=== PATIENT | male | born 1960 | race Caucasian/White ===

== ENCOUNTER 2018-10-17 15:22 | Observation (INO) ==
[2018-10-17] MEDS ORDERED: SODIUM CHLORIDE 0.9% 1000ML 1,000 ML IV ONE ×2 (15:41→16:46)
[2018-10-17] MEDS ORDERED: ONDANSETRON INJ 2 MG/ML 2 ML VIAL IV STA (15:41)
[2018-10-17] MEDS ORDERED: KETOROLAC 30 MG/ML VIAL IV STA (15:41)
--- NOTE | 2018-10-17 16:03 | Emergency Department Note ---
History of Present Illness General Chief Complaint: Flank Pain Stated Complaint: NAUSEA,VOMITING, PAIN IN LEFT SIDE Time Seen by Provider: 10/17/18 15:30 Source: patient Mode of arrival: ambulatory Limitations: no limitations History of Present Illness Provider Complaint: abdominal pain and flank pain Onset (ago): 1 day(s) Pain Consistency: constant Location: LUQ and L flank Radiation: epigastric Migration to: no migration Severity: moderate Maximum Pain Intensity: 7 Current Pain Intensity: 7 Quality: + sharp Relieved By: + nothing Exacerbated By: + nothing Context: no foreign travel, no possible food poisoning, no sick contacts, no recent antibiotic use, no recent surgery/procedure, no recent injury and no history of similar episodes Associated Symptoms: + nausea and + vomiting; no diarrhea, no fever, no chills, no constipation, no dysuria, no hematuria and no anorexia Treatments prior to arrival: none This 57-year-old male patient presents emergency department today, ambulatory, complaining of severe left sided pain. Patient reports pain in his left flank radiating to the left upper quadrant. He states it occasionally radiates toward the left lower quadrant, but not into his groin like his normal kidney stones. Patient states the pain began last night, and he developed nausea with 2 episodes of vomiting earlier today. He states the nausea vomiting with the pain. The patient rates the pain 7/10 and describes it as sharp. He denies any fever or recent illness. He reports some intermittent diarrhea and constipation, but associates this with his diabetes medication changes recently. He denies any urinary symptoms including frequency, burning, urgency , painful urination, or drainage. He denies any chest pain or dyspnea. He states the pain does radiate up towards the lower left rib cage though. The pain is nonexertional in nature. He denies any recent travel. He is not on any hormone treatments. He denies a history of clots, and is not a smoker. Home Medications Home Medications Medication Instructions Recorded Confirmed Type aspirin 81 mg PO QAM 07/28/18 10/17/18 History cholecalciferol (vitamin D3) 1,000 unit PO QAM 07/28/18 10/17/18 History [Vitamin D3] empagliflozin [Jardiance] 25 mg PO QAM 07/28/18 10/17/18 History glipizide [Glucotrol XL] 10 mg PO QAM 07/28/18 10/17/18 History levothyroxine 175 mcg PO DIRECTED 07/28/18 10/17/18 History omeprazole 20 mg PO QAM 07/28/18 10/17/18 History oxycodone 5 mg PO Q4H PRN #15 tab 07/28/18 10/17/18 Rx rosuvastatin [Crestor] 10 mg PO QPM 07/28/18 10/17/18 History sitagliptin-metformin [Janumet] 1 tab PO BID 07/28/18 10/17/18 History celecoxib 200 mg PO DAILY 10/17/18 10/17/18 History losartan 25 mg PO QPM 10/17/18 10/17/18 History trazodone 100 mg PO QPM PRN 10/17/18 10/17/18 History Allergies Allergy/AdvReac Type Severity Reaction Status Date / Time acetaminophen [From Tylenol] Allergy Intermediate Nausea/Vomi Verified 10/17/18 16:13 ting naproxen Allergy Intermediate GI UPSET Verified 10/17/18 16:13 morphine Allergy Mild ITCHING Verified 10/17/18 16:13 NONSTEROIDAL Allergy Mild GI UPSET Uncoded 10/17/18 16:13 Past Med/Surg History Medical History Diabetes Kidney stones Surgical History History of lithotripsy Social History marital status: Current Living Situation: Spouse and Family current occupational status: employed Feels Safe at Home: Yes Smoking Status: Never smoker Hx Alcohol Use: Yes Preferred Language: Czech Review of Systems A total of 10 systems reviewed and were otherwise negative Physical Exam 2 Vital Signs: Vital Signs - 24 hr 10/17/18 15:25 10/17/18 16:46 10/17/18 18:31 Temperature 36.6 C Temperature Source Oral Sepsis Recent Feve r Within 48 Hours No Sepsis New/Unexpla ined Change in Men jena Status No Sepsis Action Take n by Nursing No Action Required Pulse Rate 112 H Pulse Rate [Right Finger] 106 H 101 H Pulse Rhythm Regular Pulse Rhythm [Righ t Finger] Regular Regular Pulse Strength Normal Pulse Strength [Ri ght Finger] Normal Normal Respiratory Rate 22 18 18 Respiratory Effort / Characteristics Non-Labored Sponta neous Non-Labored Non-Labored Respiratory Depth Normal Normal Normal Respiratory Patter n Regular Regular Regular Blood Pressure 140/67 Blood Pressure [Le ft Arm] 144/63 H 123/73 Blood Pressure Luz n 91 Blood Pressure Luz n [Left Arm] 90 89 Blood Pressure Pos ition Sitting Blood Pressure Pos ition [Left Arm] Lying Lying Pulse Oximetry 95 95 95 Oxygen Delivery Me thod Room Air Room Air Physical Exam: VITALS: Vitals are noted on the nurse's note and reviewed by myself. Vital signs stable. GENERAL: This is a 57-year-old white male, in no acute distress, nondiaphoretic , well-developed well-nourished. SKIN: The skin was without rashes, erythema, edema, or bruising. There is no tenting of the skin. Capillary reflex less than 2 seconds. HEAD: Normocephalic atraumatic. EARS: External auditory canals clear, tympanic membranes pearly hightower without erythema or effusion bilaterally. EYES: Pupils equal round and reactive to light and accommodation. Conjunctivae without injection, sclerae without icterus. Extraocular movements intact. NOSE: Patent, turbinates without inflammation or discharge. No sinus tenderness. MOUTH: Mucous membranes moist. Tonsils are not enlarged. Pharynx without erythema or exudate. Uvula midline. Airway patent. Tongue does not deviate. NECK: Supple without nuchal rigidity. No lymphadenopathy. Cervical spine is nontender. No JVD. HEART: Regular rate and rhythm without murmurs gallops or rubs. LUNGS: Clear to auscultation bilaterally without wheezes, rales or rhonchi. No dullness to percussion. No retractions or accessory muscle use. ABDOMEN: Positive bowel sounds x 4. Normal tympanic percussion. Tenderness in the left upper quadrant. The abdomen is otherwise soft, nontender, without masses or organomegaly. Toribio sign negative. No guarding or rebound tenderness. Positive left-sided CVA tenderness. MUSCULOSKELETAL: No muscle atrophy, erythema, or edema noted. Full range of motion without joint tenderness in all extremities. No tenderness to palpation. Normal gait. Strength 5/5 throughout. NEURO: Patient was alert and oriented to person place and time. Normal sensation to light and sharp touch. Deep tendon reflexes 2+ throughout. No focal neurological deficits. Course The patient was seen and evaluated as above. IV access obtained, labs drawn. The patient was medicated with IV normal saline solution, Zofran, and Toradol. He was offered narcotics, but preferred to start with nonnarcotic analgesics first. Imaging performed and reviewed by myself and radiologist as above. Labs reviewed by myself. The patient was reassessed. He continues to report significant nausea and vomiting. He was given 25 mg IV Phenergan, second liter normal saline solution , and ranitidine IV. I discussed the findings of all testing with the patient at bedside. I discussed the case with my attending. The patient was reassessed and continues to experience significant nausea and some vomiting. He continues to report severe left upper quadrant pain. I discussed the case with the showcase trimmer here in the ED. They were agreeable to admission for obs for dehydration. I spoke with ERUM Lopez. She agreed to see and evaluate the patient for admission. Please see her dictation regarding ongoing management care of this patient. Administered Medications Fentanyl Citrate (Fentanyl Citrate) 50 mcg IV Q15M PRN PRN Reason: Pain Stop: 10/31/18 16:27 Last Admin: 10/17/18 16:45 Dose: 50 mcg Discontinued Medications Sodium Chloride (Nss 1000ml) 1,000 mls @ 999 mls/hr IV .Q1H1M ONE Stop: 10/17/18 16:41 Last Infusion: 10/17/18 17:43 Dose: 0 mls/hr Infusion: 10/17/18 17:11 Dose: 0 mls/hr Admin: 10/17/18 16:11 Dose: 999 mls/hr Promethazine HCl 25 mg/ Sodium (Chloride) 51 mls @ 204 mls/hr IV NOW STA Stop: 10/17/18 16:42 Last Infusion: 10/17/18 17:00 Dose: 0 mls/hr Admin: 10/17/18 16:45 Dose: 204 mls/hr Ranitidine HCl (Zantac) 50 mg in 102 mls @ 200 mls/hr IV NOW STA Stop: 10/17/18 17:16 Last Admin: 10/17/18 17:42 Dose: 200 mls/hr Sodium Chloride (Nss 1000ml) 1,000 mls @ 999 mls/hr IV .Q1H1M ONE Stop: 10/17/18 17:46 Last Infusion: 10/17/18 17:43 Dose: 0 mls/hr Admin: 10/17/18 17:08 Dose: 999 mls/hr Ketorolac Tromethamine (Toradol) 30 mg IV NOW STA Stop: 10/17/18 15:42 Last Admin: 10/17/18 16:11 Dose: 30 mg Ondansetron HCl (Zofran) 4 mg IV NOW STA Stop: 10/17/18 15:42 Last Admin: 10/17/18 16:11 Dose: 4 mg Medical Decision Making Differential Diagnosis + peptic ulcer disease, + biliary pathology, + UTI, + obstruction, + mesenteric ischemia, + aortic pathology, + infections, + inflammatory bowel disease, + renal colic, + torsion (male), + epididymitis (male), + abdominal pain, + appendicitis, + calculus of kidney, + constipation, + diverticulitis, + endometriosis, + gastroenteritis, + pancreatitis and + small bowel obstruction Home Medications Current Medication List: was personally reviewed by me Laboratory Data Attestation: I reviewed the patient's lab results. No leukocytosis, anemia, thrombocytopenia. The patient's coags without abnormality. Troponin negative. Renal function normal, however the patient is slightly acidotic with an anion gap of 16. The patient is slightly hyponatremic at 135 and glucose elevated at 280. Lipase normal at 164. Urinalysis positive for ketones and glucose. No evidence of infection. I suspect the glucose urea is related to the patient's medications. Result diagrams: 10/17/18 16:05 10/17/18 16:05 Lab Results 10/17/18 10/17/18 10/17/18 Range/Units 16:05 16:05 16:05 WBC 9.70 (4.8-10.8) K/uL RBC 5.69 (4.7-6.1) M/uL Hgb 17.6 (14.0-18.0) g/dL Hct 49.5 (42-52) % MCV 87.0 (80-100) fL MCH 30.9 (25-34) pg MCHC 35.6 (32-36) g/dL RDW Std Deviation 43.9 (36.4-46.3) fL RDW Coeff of Rosio 13.9 (11.5-14.5) % Plt Count 173 (130-400) K/uL MPV 10.6 H (7.4-10.4) fL Immature Gran % (Auto) 0.4 % Neut % (Auto) 92.1 % Lymph % (Auto) 4.1 % Banks % (Auto) 3.3 % Eos % (Auto) 0.0 % Baso % (Auto) 0.1 % Immature Gran # (Auto) 0.04 H (0.00-0.02) K/uL Neut # (Auto) 8.93 H (1.4-6.5) K/uL Lymph # (Auto) 0.40 L (1.2-3.4) K/uL Banks # (Auto) 0.32 (0.11-0.59) K/uL Eos # (Auto) 0.00 (0-0.5) K/uL Baso # (Auto) 0.01 (0-0.2) K/uL PT 10.4 (9.0-12.0) Seconds INR 1.0 (0.9-1.1) APTT 26.0 (21.0-31.0) Seconds PTT Ratio 1.0 D-Dimer 360 (0-500) ug/L FEU Sodium 135 L (136-145) mmol/L Potassium 4.0 (3.5-5.1) mmol/L Chloride 99 (98-107) mmol/L Carbon Dioxide 20 L (21-32) mmol/L Anion Gap 16.0 H (3-11) BUN 20 H (7-18) mg/dl Creatinine 1.03 (0.6-1.4) mg/dl Est Cr Clr Drug Dosing 89.8 ml/min Est GFR ( Amer) 93.0 Est GFR (Non-Af Amer) 80.3 BUN/Creatinine Ratio 19.5 (10-20) Glucose 280 H (70-99) mg/dl Calcium 8.9 (8.5-10.1) mg/dl Total Bilirubin 1.1 H (0.2-1) mg/dl AST 19 (15-37) U/L ALT 32 (12-78) U/L Alkaline Phosphatase 95 (45-117) U/L CK-MB (CK-2) 1.3 (0.5-3.6) ng/ml Troponin I < 0.015 (0-0.045) ng/ml Total Protein 7.9 (6.4-8.2) gm/dl Albumin 4.4 (3.4-5.0) gm/dl Globulin 3.5 (2.5-4.0) gm/dl Albumin/Globulin Ratio 1.2 (0.9-2) Lipase 164 (73-393) U/L Urine Color Urine Appearance (Clear) Urine pH (4.5-7.5) Ur Specific Steen (1.000-1.030) Urine Protein (Negative) Urine Glucose (UA) (Negative) Urine Ketones (Negative) Urine Blood (Negative) Urine Nitrite (Negative) Urine Bilirubin (Negative) Urine Urobilinogen (Negative) Ur Leukocyte Esterase (Negative) 10/17/18 Range/Units 16:57 WBC (4.8-10.8) K/uL RBC (4.7-6.1) M/uL Hgb (14.0-18.0) g/dL Hct (42-52) % MCV (80-100) fL MCH (25-34) pg MCHC (32-36) g/dL RDW Std Deviation (36.4-46.3) fL RDW Coeff of Rosio (11.5-14.5) % Plt Count (130-400) K/uL MPV (7.4-10.4) fL Immature Gran % (Auto) % Neut % (Auto) % Lymph % (Auto) % Banks % (Auto) % Eos % (Auto) % Baso % (Auto) % Immature Gran # (Auto) (0.00-0.02) K/uL Neut # (Auto) (1.4-6.5) K/uL Lymph # (Auto) (1.2-3.4) K/uL Banks # (Auto) (0.11-0.59) K/uL Eos # (Auto) (0-0.5) K/uL Baso # (Auto) (0-0.2) K/uL PT (9.0-12.0) Seconds INR (0.9-1.1) APTT (21.0-31.0) Seconds PTT Ratio D-Dimer (0-500) ug/L FEU Sodium (136-145) mmol/L Potassium (3.5-5.1) mmol/L Chloride (98-107) mmol/L Carbon Dioxide (21-32) mmol/L Anion Gap (3-11) BUN (7-18) mg/dl Creatinine (0.6-1.4) mg/dl Est Cr Clr Drug Dosing ml/min Est GFR ( Amer) Est GFR (Non-Af Amer) BUN/Creatinine Ratio (10-20) Glucose (70-99) mg/dl Calcium (8.5-10.1) mg/dl Total Bilirubin (0.2-1) mg/dl AST (15-37) U/L ALT (12-78) U/L Alkaline Phosphatase (45-117) U/L CK-MB (CK-2) (0.5-3.6) ng/ml Troponin I (0-0.045) ng/ml Total Protein (6.4-8.2) gm/dl Albumin (3.4-5.0) gm/dl Globulin (2.5-4.0) gm/dl Albumin/Globulin Ratio (0.9-2) Lipase (73-393) U/L Urine Color Yellow Urine Appearance Clear (Clear) Urine pH 5.0 (4.5-7.5) Ur Specific Steen 1.040 H (1.000-1.030) Urine Protein Negative (Negative) Urine Glucose (UA) 3+ H (Negative) Urine Ketones 3+ H (Negative) Urine Blood Negative (Negative) Urine Nitrite Negative (Negative) Urine Bilirubin Negative (Negative) Urine Urobilinogen Negative (Negative) Ur Leukocyte Esterase Negative (Negative) Imaging Data Radiologist's Impression: XR chest 1V portable CLINICAL HISTORY: left side pain chest pain. Dyspnea. COMPARISON STUDY: No previous studies for comparison. FINDINGS: The bones soft tissues and hemidiaphragms are normal. The cardiomediastinal silhouette is normal. The lungs are clear. The pulmonary vasculature is normal. IMPRESSION: Negative chest. The above report was generated using voice recognition software. It may contain grammatical, syntax or spelling errors. Electronically signed by: Martin Polk M.D. 10/17/2018 4:[address] SCAN OF THE ABDOMEN AND PELVIS WITHOUT IV CONTRAST CLINICAL HISTORY: Left lower quadrant abdominal pain. COMPARISON STUDY: Abdominal CT dated 07/28/2018. TECHNIQUE: CT scan of the abdomen and pelvis is performed from the lung bases to the proximal femora. Images are reviewed in the axial, sagittal, and coronal planes. IV contrast was not administered for this examination as per the referring clinician. Note that the examination was performed in suboptimal fashion without oral and IV contrast. A dose lowering technique was utilized adhering to the principles of ALARA. CT DOSE: 1045.88 mGy.cm FINDINGS: Lung bases: The heart is normal in size and without pericardial effusion. The lung bases are clear. Liver: The unenhanced liver is enlarged, measuring 19.3 cm in length. The liver demonstrates diffusely diminished attenuation consistent with hepatic steatosis. There is no intrahepatic biliary ductal dilatation. Gallbladder: Unremarkable. Spleen: Normal in size and attenuation. Pancreas: The unenhanced pancreas is moderately atrophic and grossly unremarkable. Adrenal glands: Unremarkable. Kidneys: The unenhanced kidneys are normal in size and without hydronephrosis. There are at least 2 clusters of nonobstructing calculi in the lower pole of the left kidney. The largest cluster measures up to 12 mm. No right renal calculi are identified. There is no evidence of contour deforming renal mass lesion. Abdominal vasculature: The abdominal aorta is normal in course and caliber noting moderate atherosclerotic calcification. Bowel: The stomach is distended and fluid-filled. The proximal small bowel loops are mildly distended and fluid-filled, measuring up to 3.4 cm diameter. No transition point is identified, and no bowel obstruction is seen. The appendix is well-visualized and normal. Peritoneum: There is no intraperitoneal free air or abdominal ascites. There is a moderate fat-containing umbilical hernia. Lymphadenopathy: None. Pelvic viscera: The bladder is distended and grossly unremarkable. The prostate and seminal vesicles are normal as imaged. There is a small fat-containing right inguinal hernia. Skeletal structures: There is moderate lumbosacral spondylosis. Postlaminectomy change is noted in the lower lumbar region. No lytic or blastic lesions are seen. IMPRESSION: 1. Suboptimal examination without oral and IV contrast. 2. The stomach is distended, and there are mildly distended and fluid-filled loops of small bowel. No transition point is identified and no bowel obstruction is seen. There is no bowel wall thickening or associated inflammation. The appearance suggests a nonspecific enteritis and clinical correlation will be required. 3. Left-sided nephrolithiasis. 4. Hepatomegaly and hepatic steatosis. 5. Additional findings as above. Electronically signed by: Andrzej Aranda M.D. 10/17/2018 4:31 PM ECG Data Attestation: I personally reviewed and interpreted this ECG as follows: Indication: abdominal pain Rate (beats per minute): 109 Rhythm: sinus tachycardia Findings: no acute ischemic change and no ectopy Comparison ECG Date: from (05/31/2007) Change: no significant change Blood Pressure Blood Pressure Findings: Normal blood pressure MDM Narrative This 57-year-old male patient presents emergency department today complaining of left upper quadrant and left flank tenderness, intractable nausea and vomiting, and decreased appetite. Initial concern was for kidney stone, however the patient states this does feel different than stones he has experienced in the past. Workup here is consistent with an acute enteritis, however I am concerned for possibly developing small bowel obstruction given the distended and fluid-filled stomach and bowel. The patient's nausea and vomiting was not controlled despite 2 rounds of antiemetics. Due to the slight acidosis, he was hydrated with 2 L normal saline solution. I do not feel that he will be able to tolerate p.o. fluids outpatient enough to stay adequately hydrated, especially given his history of diabetes. The patient was agreeable to inpatient management. He will be admitted to the hospitalist team for an observation stay for IV hydration and symptom management. The patient was agreeable with the course of care and treatment plan. The chart was completed utilizing [employer] Speech voice recognition software. Grammatical errors, random word insertions, pronoun errors, and incomplete sentences are an occasional consequence of this system due to software limitations, ambient noise, and hardware issues. Any formal questions or concerns about the content, text, or information contained within the body of this dictation should be directly addressed to the provider for clarification. Impression & Plan Acute dehydration, Abdominal pain, Enteritis, Intractable vomiting with nausea Discharge Plan Visit Data Chief Complaint: Flank Pain Stated Complaint: NAUSEA,VOMITING, PAIN IN LEFT SIDE ED Provider: Cj Escobar ED Midlevel Provider: Rosmery Soni Discharge Problem: Acute dehydration, Abdominal pain, Enteritis, Intractable vomiting with nausea Patient Disposition: Still a Patient Condition: Good Forms Stand Alone Forms: My [facility] Prescriptions Prescriptions: No Action celecoxib 200 mg capsule 200 mg PO DAILY PRN (Reason: Pain) RF: 0 trazodone 100 mg tablet 100 mg PO QPM PRN (Reason: Sleep) RF: 0 losartan 25 mg tablet 25 mg PO MOWEFR RF: 0 levothyroxine 175 mcg tablet 175 mcg PO DIRECTED RF: 0 glipizide [Glucotrol XL] 10 mg tablet extended release 24hr 10 mg PO QAM RF: 0 aspirin 81 mg Tablet,Delayed Release (Dr/Ec) 81 mg PO QAM RF: 0 omeprazole 20 mg capsule,delayed release(DR/EC) 20 mg PO QAM RF: 0 cholecalciferol (vitamin D3) [Vitamin D3] 1,000 unit Capsule 1,000 unit PO QAM RF: 0 rosuvastatin [Crestor] 10 mg tablet 10 mg PO MOWEFR RF: 0 sitagliptin-metformin [Janumet] 50-1,000 mg tablet 1 tab PO BID RF: 0 empagliflozin [Jardiance] 25 mg tablet 25 mg PO QAM RF: 0 oxycodone 5 mg tablet 5 mg PO Q4H PRN (Reason: pain) Qty: 15 RF: 0 Referrals Referrals: Natanael Rodriguez [Primary Care Provider] -
[2018-10-17 16:18] LABS: Basophils # (auto) 0.01 K/uL (0-0.2); Basophils % (auto) 0.1 %; Hematocrit (blood only) 49.5 % (42-52); Hemoglobin 17.6 g/dL (14.0-18.0); Immature Granulocytes # (auto) 0.04 K/uL (0.00-0.02); Immature Granulocytes % (auto) 0.4 %; Lymphocytes % (auto) 4.1 %; Mean Corpuscular Hgb Conc 35.6 g/dL (32-36); Mean Platelet Volume 10.6 fL (7.4-10.4); Monocytes # (auto) 0.32 K/uL (0.11-0.59); Monocytes % (auto) 3.3 %; Neutrophils # (auto) 8.93 K/uL (1.4-6.5); Neutrophils % (auto) 92.1 %; Platelet Count 173 K/uL (130-400); RDW Coefficient of Variation 13.9 % (11.5-14.5); RDW Standard Deviation 43.9 fL (36.4-46.3); Red Blood Count 5.69 M/uL (4.7-6.1)
[2018-10-17] MEDS ORDERED: PROMETHAZINE HCL 25 MG in SODIUM CHLORIDE 0.9% 50 ML IV STA (16:28)
[2018-10-17] MEDS ORDERED: fentaNYL citrate 100 MCG/2 ML VIAL IV PRN (16:28)
--- NOTE | 2018-10-17 16:33 | CT Scan Report ---
CT SCAN OF THE ABDOMEN AND PELVIS WITHOUT IV CONTRAST CLINICAL HISTORY: Left lower quadrant abdominal pain. COMPARISON STUDY: Abdominal CT dated 07/28/2018. TECHNIQUE: CT scan of the abdomen and pelvis is performed from the lung bases to the proximal femora. Images are reviewed in the axial, sagittal, and coronal planes. IV contrast was not administered for this examination as per the referring clinician. Note that the examination was performed in suboptim al fashion without oral and IV contrast. A dose lowering technique was utilized adhering to the [facility] [place]. CT DOSE: 1045.88 mGy.cm FINDINGS: Lung bases: The heart is normal in size and without pericardial effusion. The lung bases are clear. Liver: The unenhanced liver is enlarged, measuring 19.3 cm in length. The liver demonstrates diffusel y diminished attenuation consistent with hepatic steatosis. There is no intrahepatic biliary ductal d ilatation. Gallbladder: Unremarkable. Spleen: Normal in size and attenuation. Pancreas: The unenhanced pancreas is moderately atrophic and grossly unremarkable. Adrenal glands: Unremarkable. Kidneys: The unenhanced kidneys are normal in size and without hydronephrosis. There are at least 2 c lusters of nonobstructing calculi in the lower pole of the left kidney. The largest cluster measures up to 12 mm. No right renal calculi are identified. There is no evidence of contour deforming renal m ass lesion. Abdominal vasculature: The abdominal aorta is normal in course and caliber noting moderate atheroscle rotic calcification. Bowel: The stomach is distended and fluid-filled. The proximal small bowel loops are mildly distended and fluid-filled, measuring up to 3.4 cm diameter. No transition point is identified, and no bowel o bstruction is seen. The appendix is well-visualized and normal. Peritoneum: There is no intraperitoneal free air or abdominal ascites. There is a moderate fat-contai kalyan umbilical hernia. Lymphadenopathy: None. Pelvic viscera: The bladder is distended and grossly unremarkable. The prostate and seminal vesicles are normal as imaged. There is a small fat-containing right inguinal hernia. Skeletal structures: There is moderate lumbosacral spondylosis. Postlaminectomy change is noted in t he lower lumbar region. No lytic or blastic lesions are seen. IMPRESSION: 1. Suboptimal examination without oral and IV contrast. 2. The stomach is distended, and there are mildly distended and fluid-filled loops of small bowel. No transition point is identified and no bowel obstruction is seen. There is no bowel wall thickening o r associated inflammation. The appearance suggests a nonspecific enteritis and clinical correlation w ill be required. 3. Left-sided nephrolithiasis. 4. Hepatomegaly and hepatic steatosis. 5. Additional findings as above. Electronically signed by: Andrzej Aranda M.D. 10/17/2018 4:31 PM
[2018-10-17 16:34] LABS: Alanine Aminotransferase 32 U/L (12-78); Albumin Level 4.4 gm/dl (3.4-5.0); Aspartate Aminotransferase 19 U/L (15-37); BUN Creatinine Ratio 19.5 (10-20); Blood Urea Nitrogen 20 mg/dl (7-18); Calcium 8.9 mg/dl (8.5-10.1); Carbon Dioxide 20 mmol/L (21-32); Chloride 99 mmol/L (98-107); Creatinine Clr Calc Pharmacy 89.8 ml/min; Est GFR (Non-African American) 80.3; Glucose 280 mg/dl (70-99); Sodium 135 mmol/L (136-145)
[2018-10-17 16:37] LABS: Prothrombin Time 10.4 Seconds (9.0-12.0)
[2018-10-17 16:39] LABS: Albumin Globulin Ratio 1.2 (0.9-2); Alkaline Phosphatase 95 U/L (45-117); Bilirubin,Total 1.1 mg/dl (0.2-1); Creatine Kinase MB 1.3 ng/ml (0.5-3.6); Globulin 3.5 gm/dl (2.5-4.0); Total Protein 7.9 gm/dl (6.4-8.2); Troponin I < 0.015 ng/ml (0-0.045)
[2018-10-17] MEDS ORDERED: raNITIdine 50 MG/102 ML BAG IV STA (16:46)
[2018-10-17 17:09] LABS: Appearance Urine Clear (Clear); Bilirubin Urine Negative (Negative); Color Urine Yellow; Glucose Urine UA 3+ (Negative); Leukocyte Esterase Urine Negative (Negative); Nitrite Urine Negative (Negative); Protein Urine Negative (Negative); Urobilinogen Urine Negative (Negative)
[2018-10-17 17:13] LABS: Ketones Urine 3+ (Negative)
[2018-10-17] MEDS ORDERED: GLUCOSE 10 TABS/TUBE PO PRN (19:35)
[2018-10-17] MEDS ORDERED: GLUCAGON FOR INJ 1 MG VIAL SQ PRN (19:35)
[2018-10-17] MEDS ORDERED: GLUCOSE 40% GEL 15 GM TUBE PO PRN (19:35)
[2018-10-17] MEDS ORDERED: DEXTROSE 50% 50 ML SYRINGE IV PRN (19:35)
[2018-10-17] MEDS ORDERED: CARBOHYDRATES FOR HYPOGLYCEMIA PO PRN (19:35)
[2018-10-17] MEDS ORDERED: ONDANSETRON INJ 2 MG/ML 2 ML VIAL IV PRN (19:35)
[2018-10-17] MEDS: SODIUM CHLORIDE 0.9% 1000ML 1,000 ML IV SCH (19:56)
--- NOTE | 2018-10-17 20:04 | History & Physical Report ---
Date of Service October 17, 2018 Assessment & Plan (1) Intractable nausea and vomiting: -Admit to [facility] -Patient presenting with intractable nausea, vomiting, abdominal pain -In the ED, CT ABD/pelvis showing the stomach is distended, and there are mildly distended and fluid-filled loops of small bowel. No transition point is identified and no bowel obstruction is seen. -Suspect viral gastroenteritis however if symptoms do not improve, consider GI consult or outpatient EGD -Continue supportive care with IVF, PRN antiemetics -Clear liquid diet for now -Follow-up abdominal x-ray in a.m. (2) DM type 2 (diabetes mellitus, type 2): -Unknown recent Hgb A1c, will check with a.m. labs -On presentation, glucose 280 and mild anion gap at 16 (likely due to persistent vomiting) -IVF, hold oral agents and utilize NovoLog and Lantus per protocol while hospitalized -Recheck BMP this evening to monitor gap (3) HTN (hypertension): -BP controlled, continue losartan (4) GERD (gastroesophageal reflux disease): -IV PPI for now (5) Hypothyroidism: -Check TSH -Continue levothyroxine accordingly (6) Dyslipidemia: -Continue statin (7) DVT prophylaxis: -SCDs, ambulate History of Present Illness Chief Complaint: Nausea, vomiting, abdominal pain Primary Care Provider: Natanael Rodriguez 57-year-old male who presents the ED with nausea, vomiting, abdominal pain. Patient reports his symptoms began yesterday. He reports he initially had epigastric/right-sided abdominal pain. Then late this morning, patient developed vomiting. He reports several episodes of large-volume emesis. He denies any hematemesis or coffee-ground emesis. Patient reports a normal bowel movement this morning. No fevers or chills. He denies chest pain shortness of breath. No lightheadedness, dizziness, diaphoresis, syncopal events. He denies any urinary symptoms. In the ED, CT ABD/pelvis is showing stomach is distended, and there are mildly distended and fluid-filled loops of small bowel. Patient received IVF, IV ranitidine, IV promethazine, IV Zofran. While patient symptoms are improved, he still continues to feel nauseous. Allergies Allergy/AdvReac Type Severity Reaction Status Date / Time morphine Allergy Mild ITCHING Verified 10/17/18 16:13 acetaminophen [From Tylenol] AdvReac Intermediate Nausea/Vomi Verified 10/17/18 19:39 ting naproxen AdvReac Intermediate GI UPSET Verified 10/17/18 19:39 NONSTEROIDAL AdvReac Mild GI UPSET Uncoded 10/17/18 19:39 Home Medications Home Medications Medication Instructions Recorded Confirmed Type aspirin 81 mg PO QAM 07/28/18 10/17/18 History cholecalciferol (vitamin D3) 1,000 unit PO QAM 07/28/18 10/17/18 History [Vitamin D3] empagliflozin [Jardiance] 25 mg PO QAM 07/28/18 10/17/18 History glipizide [Glucotrol XL] 10 mg PO QAM 07/28/18 10/17/18 History levothyroxine 175 mcg PO DIRECTED 07/28/18 10/17/18 History omeprazole 20 mg PO QAM 07/28/18 10/17/18 History oxycodone 5 mg PO Q4H PRN #15 tab 07/28/18 10/17/18 Rx rosuvastatin [Crestor] 10 mg PO MOWEFR 07/28/18 10/17/18 History sitagliptin-metformin [Janumet] 1 tab PO BID 07/28/18 10/17/18 History celecoxib 200 mg PO DAILY PRN 10/17/18 10/17/18 History losartan 25 mg PO MOWEFR 10/17/18 10/17/18 History trazodone 100 mg PO QPM PRN 10/17/18 10/17/18 History Past Med/Surg History Medical History Dyslipidemia (Chronic) GERD (gastroesophageal reflux disease) (Chronic) Hypothyroidism (Chronic) HTN (hypertension) (Chronic) DM type 2 (diabetes mellitus, type 2) (Chronic) Diabetes (Inactive) Kidney stones (Inactive) Surgical History H/O lithotripsy (Chronic) H/O inguinal hernia repair (Chronic) History of lithotripsy (Inactive) Family History Mother Diabetes Social History marital status: Current Living Situation: Spouse and Family current occupational status: employed Other Information That Helps Us Care for You: No Feels Safe at Home: Yes Smoking Status: Former smoker Tobacco Type: cigarettes Do You Dip or Chew Tobacco: No Second Hand Exposure: No Tobacco Cessation Education Requested by Patient: No Hx Alcohol Use: Yes Alcohol type: beer Alcohol Intake Frequency: a few times a week Hx Substance Use: Yes substance use type: prescription drug and other Substance Use Type Other:: oxycodone Last Used Substance: Days (ago) Beliefs That Will Affect Care: None Preferred Language: Frisian Review of Systems ROS per HPI, all other systems reviewed and negative Physical Exam 2 Vital Signs (Past 24 Hours): Last Vital Signs Temp 36.6 C 10/17/18 15:25 Pulse 101 H 10/17/18 18:31 Resp 18 10/17/18 18:31 BP 123/73 10/17/18 18:31 Pulse Ox 96 10/17/18 19:14 Constitutional: WD/WN, vitals as above Eyes: PERRL, conjunctivae normal, anicteric sclerae ENMT: Ears: no external ear abnormality Nose: + dry nasal mucous membranes ; no external nose abnormality Respiratory: normal respiratory effort, lungs clear to auscultation Cardiovascular: Rate/Rhythm: regular rate and regular rhythm Vessels: normal peripheral pulses Extremities: no edema Gastrointestinal (Abdomen): Inspection/Auscultation: + abdomen distended; + abnormal bowel sounds (Hypoactive) Percussion/Palpation: + abdomen tender ( Right sided abdominal tenderness), abdomen soft and + hernia (Umbilical); no hepatosplenomegaly Musculoskeletal: no cyanosis or clubbing, extremities motor strength 5/5 Skin: no rashes, warm and dry Neurologic: PERRL, EOMI, accommodation nl, no face palsy, no dysarthria Psychiatric: A+Ox3, euthymic affect Results & Data Laboratory Results Laboratory Last Values WBC 9.70 K/uL (4.8-10.8) 10/17/18 16:05 RBC 5.69 M/uL (4.7-6.1) 10/17/18 16:05 Hgb 17.6 g/dL (14.0-18.0) 10/17/18 16:05 Hct 49.5 % (42-52) 10/17/18 16:05 MCV 87.0 fL (80-100) 10/17/18 16:05 MCH 30.9 pg (25-34) 10/17/18 16:05 MCHC 35.6 g/dL (32-36) 10/17/18 16:05 RDW Std Deviation 43.9 fL (36.4-46.3) 10/17/18 16:05 RDW Coeff of Rosio 13.9 % (11.5-14.5) 10/17/18 16:05 Plt Count 173 K/uL (130-400) 10/17/18 16:05 MPV 10.6 fL (7.4-10.4) H 10/17/18 16:05 Immature Gran % (Auto) 0.4 % 10/17/18 16:05 Neut % (Auto) 92.1 % 10/17/18 16:05 Lymph % (Auto) 4.1 % 10/17/18 16:05 [place] % (Auto) 3.3 % 10/17/18 16:05 Eos % (Auto) 0.0 % 10/17/18 16:05 Baso % (Auto) 0.1 % 10/17/18 16:05 Immature Gran # (Auto) 0.04 K/uL (0.00-0.02) H 10/17/18 16:05 Neut # (Auto) 8.93 K/uL (1.4-6.5) H 10/17/18 16:05 Lymph # (Auto) 0.40 K/uL (1.2-3.4) L 10/17/18 16:05 [place] # (Auto) 0.32 K/uL (0.11-0.59) 10/17/18 16:05 Eos # (Auto) 0.00 K/uL (0-0.5) 10/17/18 16:05 Baso # (Auto) 0.01 K/uL (0-0.2) 10/17/18 16:05 PT 10.4 Seconds (9.0-12.0) 10/17/18 16:05 INR 1.0 (0.9-1.1) 10/17/18 16:05 APTT 26.0 Seconds (21.0-31.0) 10/17/18 16:05 PTT Ratio 1.0 10/17/18 16:05 D-Dimer 360 ug/L FEU (0-500) 10/17/18 16:05 Sodium 135 mmol/L (136-145) L 10/17/18 16:05 Potassium 4.0 mmol/L (3.5-5.1) 10/17/18 16:05 Chloride 99 mmol/L (98-107) 10/17/18 16:05 Carbon Dioxide 20 mmol/L (21-32) L 10/17/18 16:05 Anion Gap 16.0 (3-11) H 10/17/18 16:05 BUN 20 mg/dl (7-18) H 10/17/18 16:05 Creatinine 1.03 mg/dl (0.6-1.4) 10/17/18 16:05 Est Cr Clr Drug Dosing 89.8 ml/min 10/17/18 16:05 Est GFR ( Amer) 93.0 10/17/18 16:05 Est GFR (Non-Af Amer) 80.3 10/17/18 16:05 BUN/Creatinine Ratio 19.5 (10-20) 10/17/18 16:05 Glucose 280 mg/dl (70-99) H 10/17/18 16:05 POC Glucose 198 (70-99) H 10/17/18 19:44 Calcium 8.9 mg/dl (8.5-10.1) 10/17/18 16:05 Total Bilirubin 1.1 mg/dl (0.2-1) H 10/17/18 16:05 AST 19 U/L (15-37) 10/17/18 16:05 ALT 32 U/L (12-78) 10/17/18 16:05 Alkaline Phosphatase 95 U/L (45-117) 10/17/18 16:05 CK-MB (CK-2) 1.3 ng/ml (0.5-3.6) 10/17/18 16:05 Troponin I < 0.015 ng/ml (0-0.045) 10/17/18 16:05 Total Protein 7.9 gm/dl (6.4-8.2) 10/17/18 16:05 Albumin 4.4 gm/dl (3.4-5.0) 10/17/18 16:05 Globulin 3.5 gm/dl (2.5-4.0) 10/17/18 16:05 Albumin/Globulin Ratio 1.2 (0.9-2) 10/17/18 16:05 Lipase 164 U/L (73-393) 10/17/18 16:05 Urine Color Yellow 10/17/18 16:57 Urine Appearance Clear (Clear) 10/17/18 16:57 Urine pH 5.0 (4.5-7.5) 10/17/18 16:57 Ur Specific [place] 1.040 (1.000-1.030) H 10/17/18 16:57 Urine Protein Negative (Negative) 10/17/18 16:57 Urine Glucose (UA) 3+ (Negative) H 10/17/18 16:57 Urine Ketones 3+ (Negative) H 10/17/18 16:57 Urine Blood Negative (Negative) 10/17/18 16:57 Urine Nitrite Negative (Negative) 10/17/18 16:57 Urine Bilirubin Negative (Negative) 10/17/18 16:57 Urine Urobilinogen Negative (Negative) 10/17/18 16:57 Ur Leukocyte Esterase Negative (Negative) 10/17/18 16:[address] ABD/PELVIS IMPRESSION: 1. Suboptimal examination without oral and IV contrast. 2. The stomach is distended, and there are mildly distended and fluid-filled loops of small bowel. No transition point is identified and no bowel obstruction is seen. There is no bowel wall thickening or associated inflammation. The appearance suggests a nonspecific enteritis and clinical correlation will be required. 3. Left-sided nephrolithiasis. 4. Hepatomegaly and hepatic steatosis. 5. Additional findings as above. CXR IMPRESSION: Negative chest. Code Status & VTE Plan VTE Prophylaxis Plan VTE Prophylaxis will be ordered: Yes Supervising Physician Co-Signing Physician Notes Pt was seen and examined. Agreed with Katie DANIELSON exam, assessment and plan. 57- year-old male who presents the ED with nausea, vomiting associated with L sided abdominal pain. Pt said that his symptoms started yesterday. He said that he had similar episode about 3 weeks ago where he had nausea/vomiting/diarrhea and abdominal pain. Denies any fever and chills. CT abd/pelvis showed stomach is distended, and there are mildly distended and fluid-filled loops of small bowel. No transition point is identified and no bowel obstruction is seen. There is no bowel wall thickening or associated inflammation. WBC and lipase normal. Elevated anion gap. Continue IVF, PPI and pain management. Will start on clear liquid diet and advanced as tolerated. MD Darby
[2018-10-17] MEDS: PANTOprazole 40 MG in SYRINGE 0 ML IV SCH (20:16)
[2018-10-17] MEDS: INSULIN GLARGINE SOLOSTAR 100 UNITS/ML 3 ML PEN SC SCH (20:17)
[2018-10-17] MEDS: MoRPHine SULFATE 4 MG/ML 1 ML CARP\\VIAL IV PRN (20:35)
[2018-10-17] MEDS: INSULIN ASPART 100 UNITS/ML 3 ML PEN SC SCH (20:39)
[2018-10-17 21:23] LABS: BUN Creatinine Ratio 20.8 (10-20); Creatinine Clr Calc Pharmacy 100.6 ml/min; Est GFR (African American) 106.6; Potassium 3.9 mmol/L (3.5-5.1)
[2018-10-18] MEDS: SODIUM CHLORIDE 0.9% 1000ML 1,000 ML IV SCH ×3 (03:34→20:29)
[2018-10-18] MEDS ORDERED: PNEUMOCOCCAL POLYSACCHARIDES 25 MCG/0.5 ML VIAL/SYR IM ONE (05:15)
[2018-10-18] MEDS ORDERED: PNEUMOCOCCAL ADMINISTRATION CHARGE ONE (05:15)
[2018-10-18] MEDS ORDERED: INFLUENZA VIRUS QUAD VACCINE 0.5 ML SYR IM ONE (05:15)
[2018-10-18] MEDS ORDERED: INFLUENZA ADMINISTRATION CHARGE ONE (05:15)
[2018-10-18] MEDS: LEVOTHYROXINE SODIUM 175 MCG TABLET PO SCH (06:02)
[2018-10-18 06:18] LABS: Hematocrit (blood only) 42.6 % (42-52); Hemoglobin 14.7 g/dL (14.0-18.0); Mean Corpuscular Hgb Conc 34.5 g/dL (32-36); Mean Corpuscular Volume 88.4 fL (80-100); Mean Platelet Volume 10.1 fL (7.4-10.4); Platelet Count 160 K/uL (130-400); RDW Coefficient of Variation 14.1 % (11.5-14.5); RDW Standard Deviation 45.5 fL (36.4-46.3); Red Blood Count 4.82 M/uL (4.7-6.1); White Blood Count 4.58 K/uL (4.8-10.8)
[2018-10-18 06:21] LABS: Estimated Average Glucose 246 mg/dl
[2018-10-18 06:30] LABS: BUN Creatinine Ratio 18.4 (10-20); Calcium 7.6 mg/dl (8.5-10.1); Creatinine Clr Calc Pharmacy 114.2 ml/min; Est GFR (African American) 114.3; Est GFR (Non-African American) 98.7; Potassium 3.9 mmol/L (3.5-5.1)
[2018-10-18] MEDS: ASPIRIN 81 MG ECTAB PO SCH (08:12)
[2018-10-18] MEDS: CHOLECALCIFEROL 1,000 UNITS TAB PO SCH (08:13)
--- NOTE | 2018-10-18 08:16 | XRay Report ---
XR KUB CLINICAL HISTORY: N/V, abdominal pain COMPARISON STUDY: CT scan dated 10/17/2018 FINDINGS: There is no pathologic bowel dilatation. There are clustered calculi projected of the lower pole the left kidney measuring 19 mm in aggregate. No right renal calculi are visualized. IMPRESSION: 1. No evidence of pathologic bowel dilatation 2. Left-sided nephrolithiasis Electronically signed by: Singh Carter M.D. 10/18/2018 8:15 AM
[2018-10-18] MEDS: MoRPHine SULFATE 4 MG/ML 1 ML CARP\\VIAL IV PRN ×2 (08:45→18:25)
[2018-10-18] MEDS: INSULIN GLARGINE SOLOSTAR 100 UNITS/ML 3 ML PEN SC SCH ×2 (08:46→20:32)
[2018-10-18] MEDS: INSULIN ASPART 100 UNITS/ML 3 ML PEN SC SCH ×4 (08:49→20:33)
[2018-10-18] MEDS ORDERED: ROSUVASTATIN CALCIUM 10 MG TAB PO SCH (09:00)
[2018-10-18] MEDS ORDERED: LOSARTAN POTASSIUM 25 MG TAB PO SCH (09:00)
[2018-10-18] MEDS: PANTOprazole 40 MG in SYRINGE 0 ML IV SCH (12:05)
[2018-10-18] MEDS ORDERED: PROMETHAZINE HCL 6.25 MG in SODIUM CHLORIDE 0.9% 50 ML IV PRN (12:58)
--- NOTE | 2018-10-18 16:45 | Hospitalist Progress Note ---
Date of Service October 18, 2018 Assessment & Plan (1) Intractable nausea and vomiting: Patient is a 57 yr male who presented with nausea, vomiting, abdominal pain --CT ABD: suggests nonspecific enteritis; Left-sided nephrolithiasis; Hepatomegaly and hepatic steatosis. --Likely viral gastroenteritis --Continue IVF, PRN antiemetics --Clear liquid diet for now --Consider GI eval if no improvement (2) DM type 2 (diabetes mellitus, type 2): Hb A1C: 10.2 --Hold PO meds --Continue NovoLog and Lantus per protocol --Plan to start on lantus upon discharge (3) HTN (hypertension): Stable On losartan (4) GERD (gastroesophageal reflux disease): Continue PPI (5) Hypothyroidism: TSH: Normal Continue levothyroxine (6) Dyslipidemia: Continue statin (7) DVT prophylaxis: SCDs, ambulate Subjective Patient is seen and examined at bedside Patient complaints of nausea, LUQ abdominal pain Denies chest pain, dyspnea, dizziness, diarrhea No other comaplints Physical Exam 2 Vital Signs (Past 24 Hours): Last Vital Signs Temp 37.0 C 10/18/18 15:39 Pulse 85 10/18/18 15:39 Resp 20 10/18/18 15:39 BP 106/68 10/18/18 15:39 Pulse Ox 97 10/18/18 15:39 Physical Exam: Physical Exam: Vitals signs as noted above General Appearance:Moderately built and nourished, no apparent distress Head: normocephalic, Atraumatic Eyes: normal inspection, EOMI Neck: supple, Trachea midline Respiratory/Chest: Normal breath sounds, CTA Cardiovascular: S1, S2, No murmur Abdomen/GI:Soft, mild generalized tenderness, Bowel sounds present Extremities/Musculoskelatal:normal inspection, no edema Neurologic/Psych:AAOX3, grossly no focal neurological deficits Skin: normal color, warm Results & Data Laboratory Results Short CBC 10/18/18 Range/Units 05:28 WBC 4.58 L D (4.8-10.8) K/uL Hgb 14.7 (14.0-18.0) g/dL Hct 42.6 (42-52) % Plt Count 160 (130-400) K/uL BMP 10/17/18 10/18/18 20:57 05:28 Sodium 137 138 Potassium 3.9 3.9 Chloride 104 107 Carbon Dioxide 23 23 BUN 19 H 15 Creatinine 0.92 0.81 Glucose 202 H 136 H Calcium 8.0 L 7.6 L Urine 10/17/18 Range/Units 16:57 Urine Color Yellow Urine Appearance Clear (Clear) Urine pH 5.0 (4.5-7.5) Ur Specific [place] 1.040 H (1.000-1.030) Urine Protein Negative (Negative) Urine Glucose (UA) 3+ H (Negative) Diagnostic Findings KUB: 1. No evidence of pathologic bowel dilatation 2. Left-sided nephrolithiasis
[2018-10-19 07:03] VITALS: TEMP 98.8
[2018-10-19] MEDS: LEVOTHYROXINE SODIUM 175 MCG TABLET PO SCH (07:30)
[2018-10-19] MEDS: CHOLECALCIFEROL 1,000 UNITS TAB PO SCH (07:43)
[2018-10-19] MEDS: ASPIRIN 81 MG ECTAB PO SCH (07:43)
[2018-10-19 08:20] LABS: BUN Creatinine Ratio 8.9 (10-20); Calcium 7.5 mg/dl (8.5-10.1); Creatinine Clr Calc Pharmacy 117.1 ml/min; Est GFR (African American) 115.5; Est GFR (Non-African American) 99.7
[2018-10-19] MEDS: INSULIN ASPART 100 UNITS/ML 3 ML PEN SC SCH ×2 (08:39→12:57)
[2018-10-19] MEDS: INSULIN GLARGINE SOLOSTAR 100 UNITS/ML 3 ML PEN SC SCH (08:40)
[2018-10-19] MEDS: SODIUM CHLORIDE 0.9% 1000ML 1,000 ML IV SCH (09:16)
[2018-10-19 15:13] VITALS: PULSE 80; O2SAT 99
--- NOTE | 2018-10-19 15:34 | Hospitalist Progress Note ---
Date of Service October 19, 2018 Assessment & Plan (1) Intractable nausea and vomiting: Patient is a 57 yr male who presented with nausea, vomiting, abdominal pain --CT ABD: suggests nonspecific enteritis; Left-sided nephrolithiasis; Hepatomegaly and hepatic steatosis. --Likely viral gastroenteritis --DC IVF --PRN antiemetics --Advanced diet--Tolerated --Advised to follow up with GI as outpatient if symptoms reoccur (2) DM type 2 (diabetes mellitus, type 2): Hb A1C: 10.2 --Hold PO meds --Continue NovoLog and Lantus per protocol --Plan to start on lantus upon discharge (3) HTN (hypertension): Stable On losartan (4) GERD (gastroesophageal reflux disease): Continue PPI (5) Hypothyroidism: TSH: Normal Continue levothyroxine (6) Dyslipidemia: Continue statin (7) DVT prophylaxis: SCDs, ambulate Subjective Patient is seen and examined at bedside Doing much better today Nausea/vomiting resolved Abdominal pain much improved Denies chest pain, dyspnea, dizziness, diarrhea No other comaplints Physical Exam 2 Vital Signs (Past 24 Hours): Last Vital Signs Temp 37.1 C 10/19/18 15:12 Pulse 80 10/19/18 15:12 Resp 18 10/19/18 15:12 BP 117/73 10/19/18 15:12 Pulse Ox 99 10/19/18 15:12 Physical Exam: Physical Exam: Vitals signs as noted above General Appearance:Moderately built and nourished, no apparent distress Head: normocephalic, Atraumatic Eyes: normal inspection, EOMI Neck: supple, Trachea midline Respiratory/Chest: Normal breath sounds, CTA Cardiovascular: S1, S2, No murmur Abdomen/GI:Soft, mild generalized tenderness, Bowel sounds present Extremities/Musculoskelatal:normal inspection, no edema Neurologic/Psych:AAOX3, grossly no focal neurological deficits Skin: normal color, warm Results & Data Laboratory Results [facility] 10/19/18 07:07 Sodium 136 Potassium 4.0 Chloride 104 Carbon Dioxide 25 BUN 7 D Creatinine 0.79 Glucose 106 H Calcium 7.5 L
[2018-10-19 15:42] VITALS: BP 104/64
--- NOTE | 2018-10-19 15:53 | Discharge Summary ---
Date of Service October 19, 2018 Admission HPI Per Admitting Provider 57-year-old male who presents the ED with nausea, vomiting, abdominal pain. Patient reports his symptoms began yesterday. He reports he initially had epigastric/right-sided abdominal pain. Then late this morning, patient developed vomiting. He reports several episodes of large-volume emesis. He denies any hematemesis or coffee-ground emesis. Patient reports a normal bowel movement this morning. No fevers or chills. He denies chest pain shortness of breath. No lightheadedness, dizziness, diaphoresis, syncopal events. He denies any urinary symptoms. In the ED, CT ABD/pelvis is showing stomach is distended, and there are mildly distended and fluid-filled loops of small bowel. Patient received IVF, IV ranitidine, IV promethazine, IV Zofran. While patient symptoms are improved, he still continues to feel nauseous. Admission Exam Per Admitting Provider Constitutional: WD/WN, vitals as above Eyes: PERRL, conjunctivae normal, anicteric sclerae ENMT: Ears: no external ear abnormality Nose: + dry nasal mucous membranes ; no external nose abnormality Respiratory: normal respiratory effort, lungs clear to auscultation Cardiovascular: Rate/Rhythm: regular rate and regular rhythm Vessels: normal peripheral pulses Extremities: no edema Gastrointestinal (Abdomen): Inspection/Auscultation: + abdomen distended; + abnormal bowel sounds (Hypoactive) Percussion/Palpation: + abdomen tender ( Right sided abdominal tenderness), abdomen soft and + hernia (Umbilical); no hepatosplenomegaly Musculoskeletal: no cyanosis or clubbing, extremities motor strength 5/5 Skin: no rashes, warm and dry Neurologic: PERRL, EOMI, accommodation nl, no face palsy, no dysarthria Psychiatric: A+Ox3, euthymic affect Principal Diagnosis Discharge Information Discharge Diagnosis Viral gastroenteritis Discharge Goals Decrease discomfort,Improve disease control, Improve function Discharge Activity Limitations Resume your previous activity Discharge Data Allergies Allergy/AdvReac Type Severity Reaction Status Date / Time morphine Allergy Mild ITCHING Verified 10/17/18 16:13 acetaminophen [From Tylenol] AdvReac Intermediate Nausea/Vomi Verified 10/17/18 19:39 ting naproxen AdvReac Intermediate GI UPSET Verified 10/17/18 19:39 NONSTEROIDAL AdvReac Mild GI UPSET Uncoded 10/17/18 19:39 Consultations 10/17/18 18:15 ED Decision to Admit Stat Procedures Performed CT ABD; 1. Suboptimal examination without oral and IV contrast. 2. The stomach is distended, and there are mildly distended and fluid-filled loops of small bowel. No transition point is identified and no bowel obstruction is seen. There is no bowel wall thickening or associated inflammation. The appearance suggests a nonspecific enteritis and clinical correlation will be required. 3. Left-sided nephrolithiasis. 4. Hepatomegaly and hepatic steatosis. 5. Additional findings as above. CXR: Negative chest. KUB: 1. No evidence of pathologic bowel dilatation 2. Left-sided nephrolithiasis Ordered Studies 10/17/18 15:41 CT abd pelvis wo con Stat Hospital Course (1) Intractable nausea and vomiting: Patient is a 57 yr male who presented with nausea, vomiting, abdominal pain --CT ABD: suggests nonspecific enteritis; Left-sided nephrolithiasis; Hepatomegaly and hepatic steatosis. --Likely viral gastroenteritis --DC IVF --PRN antiemetics --Advanced diet--Tolerated --Advised to follow up with GI as outpatient if symptoms reoccur (2) DM type 2 (diabetes mellitus, type 2): Hb A1C: 10.2 --Hold PO meds --Continue NovoLog and Lantus per protocol --Plan to start on lantus upon discharge (3) HTN (hypertension): Stable On losartan (4) GERD (gastroesophageal reflux disease): Continue PPI (5) Hypothyroidism: TSH: Normal Continue levothyroxine (6) Dyslipidemia: Continue statin (7) DVT prophylaxis: SCDs, ambulate Total Time Total Time Spent Total Time Spent (In Minutes): 25 minutes Total Time Includes: Examination of the Patient, Discharge Planning, Medication Reconciliation, Communication With Other Providers and Other Discharge Plan Discharge Items Patient Disposition: Home - Self-Care Reason For Visit: NAUSEA,VOMITING Discharge Diagnosis: Viral gastroenteritis Condition: Good Discharge Goals: Decrease discomfort, Improve disease control and Improve function Activity: Resume your previous activity Non-emergency contact: Primary Care Provider Call non-emergency contact if: you have any medication questions, your symptoms worsen, your pain is not controlled, your pain is worsening, your pain is unusual for you, your pain is concerning for you and you have a fever Diet: Carb Consistent or DM2 Addtl Provider Instructions: Follow up with your PCP in 1 week Consider following up with your readiness paraprofessional as advised Seek immediate medical attention if your symptoms reoccur or worsen Prescriptions: New insulin glargine [Lantus Solostar U-100 Insulin] 100 unit/mL (3 mL) Insulin Pen 10 unit SC HS 30 Days Qty: 1 RF: 1 Continue celecoxib 200 mg capsule 200 mg PO DAILY PRN (Reason: Pain) RF: 0 trazodone 100 mg tablet 100 mg PO QPM PRN (Reason: Sleep) RF: 0 losartan 25 mg tablet 25 mg PO MOWEFR RF: 0 levothyroxine 175 mcg tablet 175 mcg PO DIRECTED RF: 0 glipizide [Glucotrol XL] 10 mg tablet extended release 24hr 10 mg PO QAM RF: 0 aspirin 81 mg Tablet,Delayed Release (Dr/Ec) 81 mg PO QAM RF: 0 omeprazole 20 mg capsule,delayed release(DR/EC) 20 mg PO QAM RF: 0 cholecalciferol (vitamin D3) [Vitamin D3] 1,000 unit Capsule 1,000 unit PO QAM RF: 0 rosuvastatin [Crestor] 10 mg tablet 10 mg PO MOWEFR RF: 0 sitagliptin-metformin [Janumet] 50-1,000 mg tablet 1 tab PO BID RF: 0 empagliflozin 25 mg tablet 25 mg PO QAM RF: 0 oxycodone 5 mg tablet 5 mg PO Q4H PRN (Reason: pain) Qty: 15 RF: 0 Stand-Alone Forms: [facility] Discharge Orders: Discharge Order (Routine); Ordered 10/19/18 Ordered By: Gaudencio Bell Admission Data Admit Date/Time: 10/17/18 18:50 Attending Provider: Gaudencio Bell Admit Provider: Alfonso Pastor Primary Care Provider: Natanael Rodriguez Other Providers: Rolando Gil ; Rolando Preciado Service: Medical Other Interventions: Discharge Summary Assessment (RN) Last Done: 10/19/18 15:40 Pending Studies at Discharge: No DC Date/Time DO NOT enter until pt leaves facility: 10/19/18 16:45
[2018-10-20] MEDS ORDERED: LEVOTHYROXINE SODIUM 175 MCG TABLET PO SCH (06:30)
[2018-10-20] MEDS ORDERED: PANTOprazole 40 MG TAB PO SCH (09:00)
== END 2018-10-19 16:45 | disposition home or self-care (01) ==
LOC: 4W 15:22 → ED 15:22 → SUATTDRO 18:50 → 4W 19:19
DX: I10 Essential (primary) hypertension; Z88.6 Allergy status to analgesic agent; E86.0 Dehydration; K21.9 Gastro-esophageal reflux disease without esophagitis; Z79.82 Long term (current) use of aspirin; R10.9 Unspecified abdominal pain; E03.9 Hypothyroidism, unspecified; E11.9 Type 2 diabetes mellitus without complications; Z88.5 Allergy status to narcotic agent; R11.2 Nausea with vomiting, unspecified; E78.5 Hyperlipidemia, unspecified

== ENCOUNTER 2022-06-29 19:04 | Inpatient (IN) ==
[2022-06-29 19:43] LABS: Basophils # (auto) 0.06 K/uL (0-0.2); Basophils % (auto) 0.5 %; Eosinophils # (auto) 0.06 K/uL (0-0.50); Eosinophils % (auto) 0.5 %; Hematocrit (blood only) 31.5 % (40.1-51.0); Hemoglobin 11.3 g/dl (14.0-18.0); Immature Granulocytes # (auto) 0.05 K/uL (0.00-0.02); Immature Granulocytes % (auto) 0.4 %; Lymphocytes # (auto) 1.21 K/uL (1.2-3.4); Lymphocytes % (auto) 9.6 %; Mean Corpuscular Hgb Conc 35.9 g/dL (32.0-36.0); Mean Corpuscular Volume 86.3 fL (80.0-100.0); Monocytes # (auto) 0.95 K/uL (0.24-0.82); Monocytes % (auto) 7.6 %; Neutrophils # (auto) 10.23 K/uL (1.4-6.5); Neutrophils % (auto) 81.4 %; Platelet Count 221 K/uL (130-400); RDW Coefficient of Variation 13.3 % (11.5-14.5); RDW Standard Deviation 41.6 fL (36.4-46.3); Red Blood Count 3.65 M/uL (4.63-6.08); White Blood Count 12.56 K/ul (4.8-10.8)
[2022-06-29 20:08] LABS: Albumin Globulin Ratio 1.2 (0.9-2); Albumin Level 3.9 gm/dl (3.4-5.0); BUN Creatinine Ratio 15.8 (10-20); Bilirubin,Total 1.1 mg/dl (0.2-1.0); Calcium 8.9 mg/dl (8.5-10.1); Creatinine Clr Calc Pharmacy 43.9 ml/min; Est GFR (African American) 39.8 ml/min; Est GFR (Non-African American) 34.4 ml/min; Globulin 3.3 gm/dl (2.5-4.0); Total Protein 7.2 gm/dl (6.0-8.3)
[2022-06-29 21:28] LABS: Appearance Urine Turbid (Clear); Bacteria Urine Automated 4+ (Negative); Bilirubin Urine Negative (Negative); Blood Urine 3+ (Negative); Color Urine Yellow; Epithelial Cell Urine Auto 20-30 /lpf (0-5); Glucose Urine UA 3+ (Negative); Ketones Urine Trace (Negative); Leukocyte Esterase Urine 2+ (Negative); Nitrite Urine Negative (Negative); Protein Urine 3+ (Negative); RBC Urine Automated >30 /hpf (0-4); Specific Gravity Urine 1.021 (1.000-1.030); Urobilinogen Urine Negative (Negative); WBC Urine Automated >30 /hpf (0-5); pH Urine 5.5 (4.5-7.5)
[2022-06-29] MEDS ORDERED: ONDANSETRON INJ 2 MG/ML 2 ML VIAL IV STA (22:00)
[2022-06-29] MEDS ORDERED: MoRPHine SULFATE 4 MG/ML 1 ML CARP\\VIAL IV STA (22:00)
[2022-06-29] MEDS ORDERED: SODIUM CHLORIDE 0.9% 1000ML 1,000 ML IV ONE (22:00)
[2022-06-29] MEDS ORDERED: cefTRIAXone SODIUM 2,000 MG/70 ML BAG IV STA (22:02)
--- NOTE | 2022-06-29 23:03 | Emergency Department Note ---
History of Present Illness General Chief complaint: Kidney Stone Stated complaint: POSSIBLE KIDNEY STONE History of Present Illness Maximum Pain Intensity: 8 This 61-year-old presents to the ER complaining of flank pain who has a history of stones and feels similar Location: Left flank Quality: Painful Severity: Severe Duration: Today Timing: Today Context: Patient was concerned and came in Modifying factors: better with nothing; worse with nothing Patient's had numerous rounds of lithotripsy. Patient denies chest pain, dyspnea, fevers, vomiting, diarrhea, testicular pain, penile pain. Home Medications Medication Instructions Recorded Confirmed Type glipizide 10 mg tablet, extended 10 mg PO BID 07/28/18 06/29/22 History release 24 hr (Glucotrol XL) omeprazole 20 mg capsule,delayed 20 mg PO QAM PRN Acid Reflux 07/28/18 06/29/22 History release levothyroxine 200 mcg tablet 200 mcg PO DAILY 06/29/22 06/29/22 History losartan 100 mg tablet 100 mg PO HS 06/29/22 06/29/22 History trazodone 50 mg tablet 50 mg PO HS PRN Sleep 06/29/22 06/29/22 History Allergies Allergy/AdvReac Type Severity Reaction Status Date / Time ketorolac [From Toradol] Allergy Intermediate ITCHY Verified 06/29/22 21:32 lisinopril AdvReac Intermediate cough Verified 06/29/22 21:27 naproxen AdvReac Intermediate Nausea/Vomi Verified 06/29/22 21:27 ting NSAIDS (Non-Steroidal AdvReac Intermediate Vomiting Verified 06/29/22 21:27 Anti-Inflamma Past Med/Surg History Medical History (Updated 06/29/22 @ 23:03 by Teri Sofia PA-C) Diabetes DM type 2 (diabetes mellitus, type 2) Dyslipidemia GERD (gastroesophageal reflux disease) HTN (hypertension) Hypothyroidism Kidney stones Surgical History H/O inguinal hernia repair H/O lithotripsy History of lithotripsy Family History Mother Diabetes Social History Smoking Status: Never smoker Second Hand Exposure: No; Hx Alcohol Use: Yes Alcohol type: beer Hx Substance Use: Yes Last Used Substance: Days (ago) Substance Use Type Other:: oxycodone Preferred Language: Romanian Communication Ability: Effective Tumbling Barrel Painter Required: No Beliefs That Will Affect Care: None marital status: Current Living Situation: Spouse and Family current occupational status: employed Feels Safe at Home: Yes Assistive Devices: None and Glasses Review of Systems A total of 10 systems reviewed and were otherwise negative Physical Exam Vital Signs Vital Signs - 24 hr 06/29/22 19:12 06/29/22 21:01 06/29/22 23:02 Temperature 36.2 C L 37.5 C Temperature Source Temporal Artery Scan Oral Pulse Rate 101 H Pulse Rate [Finger] 95 H 98 H Pulse Rhythm [Finger] Regular Pulse Strength [Finger] Normal Respiratory Rate 18 18 20 Respiratory Effort / Characteristics Non-Labored Spontaneous Non-Labored Spontaneous Non-Labored Spontaneous Respiratory Depth Normal Normal Normal Respiratory Pattern Regular Regular Regular Blood Pressure 147/82 H Blood Pressure [Right Arm] 135/61 157/93 H Blood Pressure Mean 103 Blood Pressure Mean [Right Arm] 85 114 Blood Pressure Position Sitting Pulse Oximetry 96 98 97 Oxygen Delivery Method Room Air Room Air Sepsis Recent Fever Within 48 Hours No Sepsis New/Unexplained Change in Mental Status N/A Sepsis Action Taken by Nursing No Action Required VITALS: Vitals are noted on the nurse's note and reviewed by myself. Vital signs reviewed. GENERAL: White male who appears in pain, in no acute distress, nondiaphoretic, well-developed well-nourished. SKIN: The skin was without rashes, erythema, edema, or bruising. There is no tenting of the skin. Capillary reflex less than 2 seconds. HEAD: Normocephalic atraumatic. EARS: External auditory canals clear, EYES: Pupils equal round and reactive to light and accommodation. Conjunctivae without injection, sclerae without icterus. Extraocular movements intact. NOSE: Patent, turbinates without inflammation or discharge MOUTH: Mucous membranes moist. Pharynx without erythema or exudate. Uvula midline. Airway patent. Tongue does not deviate. NECK: Supple without nuchal rigidity. No lymphadenopathy. No thyromegaly. Cervical spine is nontender. No JVD. HEART: Regular rate and rhythm LUNGS: Clear to auscultation bilaterally without wheezes, rales or rhonchi. No retractions or accessory muscle use. ABDOMEN: Positive bowel sounds x 4. Normal tympanic percussion. Soft, nontender, without masses or organomegaly. Toribio sign negative. No guarding or rebound tenderness. No CVA tenderness MUSCULOSKELETAL: No muscle atrophy, erythema, or edema noted. NEURO: Patient was alert and oriented to person place and time. Normal sensation to light and sharp touch. No focal neurological deficits. Course Administered Medications Discontinued Medications Hydromorphone HCl (Hydromorphone Inj 1 Mg/Ml Syringe) 1 mg IV NOW STA Stop: 06/29/22 23:07 Last Admin: 06/29/22 23:11 Dose: 1 mg Documented By: HERBERT Sodium Chloride (Nss 1000ml) 1,000 mls @ 999 mls/hr IV .Q1H1M ONE Stop: 06/29/22 23:00 Last Infusion: 06/30/22 00:02 Dose: 0 mls/hr Documented By: Admin: 06/29/22 22:05 Dose: 999 mls/hr Documented By: HERBERT Ceftriaxone Sodium (Rocephin) 2,000 mg in 70 mls @ 140 mls/hr IV NOW STA Stop: 06/29/22 22:31 Last Infusion: 06/29/22 23:00 Dose: 0 mls/hr Documented By: Admin: 06/29/22 22:25 Dose: 140 mls/hr Documented By: HERBERT Acetaminophen (Ofirmev) 1,000 mg in 100 mls @ 400 mls/hr IV NOW STA Stop: 06/29/22 23:20 Last Admin: 06/29/22 23:11 Dose: Not Given Documented By: HERBERT Morphine Sulfate (Morphine Sulfate 4 Mg/Ml 1 Ml Carp\Vial) 4 mg IV NOW STA Stop: 06/29/22 22:01 Last Admin: 06/29/22 22:05 Dose: 4 mg Documented By: HERBERT Ondansetron HCl (Ondansetron Inj 2 Mg/Ml 2 Ml Vial) 4 mg IV NOW STA Stop: 06/29/22 22:01 Last Admin: 06/29/22 22:05 Dose: 4 mg Documented By: HERBERT Medical Decision Making Medical Records Attestation: I reviewed the patient's medical records. Home Medications Current Medication List: was personally reviewed by me Laboratory Data Attestation: I reviewed the patient's lab results. Result diagrams: 06/29/22 19:35 06/29/22 19:35 Lab Results 06/29/22 06/29/22 06/29/22 Range/Units 19:35 19:35 21:07 WBC 12.56 H (4.8-10.8) K/ul RBC 3.65 L (4.63-6.08) M/uL Hgb 11.3 L (14.0-18.0) g/dl Hct 31.5 L (40.1-51.0) % MCV 86.3 (80.0-100.0) fL MCH 31.0 (25.0-34.0) pg MCHC 35.9 (32.0-36.0) g/dL RDW Std Deviation 41.6 (36.4-46.3) fL RDW Coeff of Rosio 13.3 (11.5-14.5) % Plt Count 221 (130-400) K/uL MPV 10.0 (9.4-12.4) fL Immature Gran % (Auto) 0.4 % Neut % (Auto) 81.4 % Lymph % (Auto) 9.6 % [place] % (Auto) 7.6 % Eos % (Auto) 0.5 % Baso % (Auto) 0.5 % Neut # (Auto) 10.23 H (1.4-6.5) K/uL Lymph # (Auto) 1.21 (1.2-3.4) K/uL [place] # (Auto) 0.95 H (0.24-0.82) K/uL Eos # (Auto) 0.06 (0-0.50) K/uL Baso # (Auto) 0.06 (0-0.2) K/uL Immature Gran # (Auto) 0.05 H (0.00-0.02) K/uL Sodium 128 L (136-145) mmol/L Potassium 4.0 (3.5-5.1) mmol/L Chloride 97 L (98-107) mmol/L Carbon Dioxide 20 L (21-32) mmol/L Anion Gap 11 (3-11) BUN 32 H (6-23) mg/dl Creatinine 2.03 H (0.6-1.4) mg/dl Est Cr Clr Drug Dosing 43.9 ml/min Est GFR ( Amer) 39.8 ml/min Est GFR (Non-Af Amer) 34.4 ml/min BUN/Creatinine Ratio 15.8 (10-20) Glucose 297 H (70-99(Fasting)) mg/dl Lactate (0.4-2.0) mmol/L Calcium 8.9 (8.5-10.1) mg/dl Total Bilirubin 1.1 H (0.2-1.0) mg/dl AST 13 (13-39) U/L ALT 13 (7-52) U/L Alkaline Phosphatase 96 (34-104) U/L Total Protein 7.2 (6.0-8.3) gm/dl Albumin 3.9 (3.4-5.0) gm/dl Globulin 3.3 (2.5-4.0) gm/dl Albumin/Globulin Ratio 1.2 (0.9-2) Urine Color Yellow Urine Appearance Turbid A (Clear) Urine pH 5.5 (4.5-7.5) Ur Specific [place] 1.021 (1.000-1.030) Urine Protein 3+ H (Negative) Urine Glucose (UA) 3+ H (Negative) Urine Ketones Trace H (Negative) Urine Blood 3+ H (Negative) Urine Nitrite Negative (Negative) Urine Bilirubin Negative (Negative) Urine Urobilinogen Negative (Negative) Ur Leukocyte Esterase 2+ H (Negative) Urine WBC (Auto) >30 H (0-5) /hpf Urine RBC (Auto) >30 H (0-4) /hpf U Hyaline Cast (Auto) 1-5 (0-5) /lpf U Epithel Cells (Auto) 20-30 H (0-5) /lpf Urine Bacteria (Auto) 4+ H (Negative) SARS-CoV-2, RNA, NAAT (NEGATIVE) 06/29/22 06/29/22 Range/Units 22:15 22:18 WBC (4.8-10.8) K/ul RBC (4.63-6.08) M/uL Hgb (14.0-18.0) g/dl Hct (40.1-51.0) % MCV (80.0-100.0) fL MCH (25.0-34.0) pg MCHC (32.0-36.0) g/dL RDW Std Deviation (36.4-46.3) fL RDW Coeff of Rosio (11.5-14.5) % Plt Count (130-400) K/uL MPV (9.4-12.4) fL Immature Gran % (Auto) % Neut % (Auto) % Lymph % (Auto) % [place] % (Auto) % Eos % (Auto) % Baso % (Auto) % Neut # (Auto) (1.4-6.5) K/uL Lymph # (Auto) (1.2-3.4) K/uL [place] # (Auto) (0.24-0.82) K/uL Eos # (Auto) (0-0.50) K/uL Baso # (Auto) (0-0.2) K/uL Immature Gran # (Auto) (0.00-0.02) K/uL Sodium (136-145) mmol/L Potassium (3.5-5.1) mmol/L Chloride (98-107) mmol/L Carbon Dioxide (21-32) mmol/L Anion Gap (3-11) BUN (6-23) mg/dl Creatinine (0.6-1.4) mg/dl Est Cr Clr Drug Dosing ml/min Est GFR ( Amer) ml/min Est GFR (Non-Af Amer) ml/min BUN/Creatinine Ratio (10-20) Glucose (70-99(Fasting)) mg/dl Lactate 1.0 (0.4-2.0) mmol/L Calcium (8.5-10.1) mg/dl Total Bilirubin (0.2-1.0) mg/dl AST (13-39) U/L ALT (7-52) U/L Alkaline Phosphatase (34-104) U/L Total Protein (6.0-8.3) gm/dl Albumin (3.4-5.0) gm/dl Globulin (2.5-4.0) gm/dl Albumin/Globulin Ratio (0.9-2) Urine Color Urine Appearance (Clear) Urine pH (4.5-7.5) Ur Specific [place] (1.000-1.030) Urine Protein (Negative) Urine Glucose (UA) (Negative) Urine Ketones (Negative) Urine Blood (Negative) Urine Nitrite (Negative) Urine Bilirubin (Negative) Urine Urobilinogen (Negative) Ur Leukocyte Esterase (Negative) Urine WBC (Auto) (0-5) /hpf Urine RBC (Auto) (0-4) /hpf U Hyaline Cast (Auto) (0-5) /lpf U Epithel Cells (Auto) (0-5) /lpf Urine Bacteria (Auto) (Negative) SARS-CoV-2, RNA, NAAT NEGATIVE (NEGATIVE) Imaging Data Attestation: I personally reviewed and interpreted this imaging study as follows: MDM Narrative Prior records/ancillary studies reviewed. Triage Nursing notes reviewed. Additional history obtained from the family. The patient's history was concerning for flank pain. Differential diagnosis: Etiologies such as renal colic, appendicitis, diverticulitis, mesenteric ischemia, aortic pathology, infections, inflammatory bowel disease, PUD, biliary pathology, UTI, as well as others were entertained. Physical examination findings: As above. ER treatment provided: Morphine Zofran IV fluids, Rocephin On reassessment the patient felt better. Diagnostic interpretation by me: The labs revealed elevated creatinine. Urinalysis revealed concerns for UTI. Prior urine culture was reviewed Leukocytosis Imaging studies: CT ABDOMEN & PELVIS Without Contrast: Impression: Nonobstructing stone seen in the lower pole of the left kidney, measuring up to 11 mm in diameter. There is omental fat-containing umbilical hernia measuring 2.8 cm in diameter. No hydronephrosis. Radiologist: Ashok Burleson MD Consultation: A consultation was placed with the hospitalist. The case was discussed and diagnostics were reviewed. The patient was evaluated in the ER for further treatment. Exam and history concerning for PERLA with UTI. Patient was started on antibiotics. Medicine is consulted. He will be evaluated for admission. By the evaluation outlined above emergent etiologies such as appendicitis, diverticulitis, mesenteric ischemia, aortic pathology, inflammatory bowel disease, PUD, biliary pathology, as well as others were deemed relatively unlikely. The pt informed about the findings as listed above. All questions were answered and pleased with the treatment. The chart was completed utilizing [employer] voice recognition software. Grammatical errors, random word insertions, pronoun errors, and incomplete sentences are an occassional consequence of this system due to software limitations, ambient noise, and hardware issues. Any formal questions or concer ns about the content, text, or information contained within the body of this dictation should be directly addressed to the physician store assistant for clarification. Impression & Plan PERLA (acute kidney injury), Pyelonephritis Discharge Plan Visit Data Chief Complaint: Kidney Stone Stated Complaint: POSSIBLE KIDNEY STONE ED Provider: Paola Yañez ED Midlevel Provider: Teri Sofia Discharge Problem: PERLA (acute kidney injury), Pyelonephritis Patient Disposition: Admitted As Inpatient Condition: Good Forms Stand Alone Forms: My Rob[employer] Prescriptions Prescriptions: No Action glipizide [Glucotrol XL] 10 mg tablet extended release 24hr 10 mg PO BID omeprazole 20 mg capsule,delayed release(DR/EC) 20 mg PO QAM PRN (Reason: Acid Reflux) trazodone 50 mg tablet 50 mg PO HS PRN (Reason: Sleep) levothyroxine 200 mcg tablet 200 mcg PO DAILY losartan 100 mg tablet 100 mg PO HS Referrals Referrals: Natanael Rodriguez [Primary Care Provider] -
[2022-06-29] MEDS ORDERED: HYDROmorphone INJ 1 MG/ML SYRINGE IV STA (23:06)
[2022-06-29] MEDS ORDERED: ACETAMINOPHEN 1,000 MG/100 ML VIAL IV STA (23:06)
--- NOTE | 2022-06-29 23:50 | History & Physical Report ---
Date of Service June 29, 2022 Assessment & Plan (1) Sepsis: Plan: Secondary to complicated UTI, possible pyelonephritis SIRS criteria plus elevated procalcitonin History recurrent urolithiasis although no current obstruction on initial CT read as per report. Acute on chronic hyponatremia secondary to illness hx nonocclusive CAD hypertension, slight elevated secondary discomfort DM2 on oral medications, suboptimal control as of outpatient hemoglobin A1c of 1 0.2 last 2019 hypothyroidism, unknown control CRI (unknown baseline), abnormal kidney function on recent outpatient blood draw as per patient Chronic anemia on recent outpatient blood work, possibly from chronic kidney disease patient denies overt blood loss ALMAS status post surgery past tobacco abuse Medical telemetry Urine CS, Cefepime Careful correction of sodium Hyponatremia work-up, check TSH Monitor creatinine response to IVF Hold losartan for now Amlodipine for BP control losartan on hold Basal bolus insulin, ISS BG goal 1 10-1 40, carb count coverage, update hemoglobin A1c DVT prophylaxis with Heparin subcu Full code Text document was generated using [employer] voice recognition software. It may contain grammatical or spelling errors. Kindly contact undersigned for clarification of any documentation item in question. History of Present Illness Chief Complaint: Left flank pain Primary Care Provider: Natanael Rodriguez History obtained from patient and records. Medical history significant for nonocclusive CAD, hypertension, hyperlipidemia, DM2 on oral medications, hypothyroidism, recurrent urolithiasis, CRI (unknown baseline), anemia on recent outpatient blood work, chronic hyponatremia, ALMAS status post surgery, past tobacco abuse. Last confinement October 2018 for intractable nausea vomiting. Few days history of achy left flank pain nausea, dry heaving symptoms reminiscent of kidney stone pain. No gross hematuria. No fever; some chills. No chest pain, no SOB. Patient consulted ER for intractable pain. IV ceftriaxone administered at the ER. Medical History as above Surgical History : Multiple lithotripsies, hernia repair Family History : Heart disease, autism Personal/Social history : Past tobacco abuse, occasional EtOH intake, ophth almology clinic nurse Allergies Allergy/AdvReac Type Severity Reaction Status Date / Time ketorolac [From Toradol] Allergy Intermediate ITCHY Verified 06/29/22 21:32 lisinopril AdvReac Intermediate cough Verified 06/29/22 21:27 naproxen AdvReac Intermediate Nausea/Vomi Verified 06/29/22 21:27 ting NSAIDS (Non-Steroidal AdvReac Intermediate Vomiting Verified 06/29/22 21:27 Anti-Inflamma Home Medications Medication Instructions Recorded Confirmed Type glipizide 10 mg tablet, extended 10 mg PO BID 07/28/18 06/29/22 History release 24 hr (Glucotrol XL) omeprazole 20 mg capsule,delayed 20 mg PO QAM PRN Acid Reflux 07/28/18 06/29/22 History release levothyroxine 200 mcg tablet 200 mcg PO DAILY 06/29/22 06/29/22 History losartan 100 mg tablet 100 mg PO HS 06/29/22 06/29/22 History trazodone 50 mg tablet 50 mg PO HS PRN Sleep 06/29/22 06/29/22 History Past Med/Surg History Medical History (Updated 06/30/22 @ 02:22 by Isaiah Gaviria MD) Diabetes DM type 2 (diabetes mellitus, type 2) Dyslipidemia GERD (gastroesophageal reflux disease) HTN (hypertension) Hypothyroidism Kidney stones Surgical History H/O inguinal hernia repair H/O lithotripsy History of lithotripsy Family History Mother Diabetes Social History Smoking Status: Never smoker Second Hand Exposure: No; Hx Alcohol Use: Yes Alcohol type: beer Hx Substance Use: Yes Last Used Substance: Days (ago) Substance Use Type Other:: oxycodone Preferred Language: Estonian Communication Ability: Effective Gleason Gear Generator Required: No Beliefs That Will Affect Care: None marital status: Current Living Situation: Spouse and Family current occupational status: employed Feels Safe at Home: Yes Assistive Devices: None and Glasses Review of Systems Review of Systems: As per HPI, all other systems reviewed and negative Physical Exam Physical Exam: GENERAL: Slightly uncomfortable, pleasant, obese, no respiratory distress SKIN: Normal color, warm HEENT: [place] palpebral conjunctivae, no ptosis, dry buccal mucosa NECK : Supple, short neck, no tenderness CHEST : CTA, no tenderness HEART : RRR, no obvious murmurs ABDOMEN: Some distention, nontender BACK : Left flank tenderness EXTREMITIES : Minimal LE swelling, no LE tenderness, no other conspicuous deformities noted NEUROLOGIC : Coherent, no facial asymmetry, no other gross focality Results & Data Results & Data ([facility]) Vital Signs (Past 12 Hours) Vital Signs Temp Pulse Pulse Resp BP BP Pulse Ox 06/29/22 23:02 98 H 20 157/93 H 97 06/29/22 21:01 37.5 C 95 H 18 135/61 98 06/29/22 19:12 36.2 C L 101 H 18 147/82 H 96 O2 Del Method 06/29/22 23:02 Room Air 06/29/22 21:01 06/29/22 19:12 Room Air Laboratory Results Laboratory Results WBC 12.56 K/ul (4.8-10.8) H 06/29/22 19:35 RBC 3.65 M/uL (4.63-6.08) L 06/29/22 19:35 Hgb 11.3 g/dl (14.0-18.0) L 06/29/22 19:35 Hct 31.5 % (40.1-51.0) L 06/29/22 19:35 MCV 86.3 fL (80.0-100.0) 06/29/22 19:35 MCH 31.0 pg (25.0-34.0) 06/29/22 19:35 MCHC 35.9 g/dL (32.0-36.0) 06/29/22 19:35 RDW Std Deviation 41.6 fL (36.4-46.3) 06/29/22 19:35 RDW Coeff of Rosio 13.3 % (11.5-14.5) 06/29/22 19:35 Plt Count 221 K/uL (130-400) 06/29/22 19:35 MPV 10.0 fL (9.4-12.4) 06/29/22 19:35 Immature Gran % (Auto) 0.4 % 06/29/22 19:35 Neut % (Auto) 81.4 % 06/29/22 19:35 Lymph % (Auto) 9.6 % 06/29/22 19:35 [place] % (Auto) 7.6 % 06/29/22 19:35 Eos % (Auto) 0.5 % 06/29/22 19:35 Baso % (Auto) 0.5 % 06/29/22 19:35 Neut # (Auto) 10.23 K/uL (1.4-6.5) H 06/29/22 19:35 Lymph # (Auto) 1.21 K/uL (1.2-3.4) 06/29/22 19:35 [place] # (Auto) 0.95 K/uL (0.24-0.82) H 06/29/22 19:35 Eos # (Auto) 0.06 K/uL (0-0.50) 06/29/22 19:35 Baso # (Auto) 0.06 K/uL (0-0.2) 06/29/22 19:35 Immature Gran # (Auto) 0.05 K/uL (0.00-0.02) H 06/29/22 19:35 Sodium 128 mmol/L (136-145) L 06/29/22 19:35 Potassium 4.0 mmol/L (3.5-5.1) 06/29/22 19:35 Chloride 97 mmol/L (98-107) L 06/29/22 19:35 Carbon Dioxide 20 mmol/L (21-32) L 06/29/22 19:35 Anion Gap 11 (3-11) 06/29/22 19:35 BUN 32 mg/dl (6-23) H 06/29/22 19:35 Creatinine 2.03 mg/dl (0.6-1.4) H 06/29/22 19:35 Est Cr Clr Drug Dosing 43.9 ml/min 06/29/22 19:35 Est GFR ( Amer) 39.8 ml/min 06/29/22 19:35 Est GFR (Non-Af Amer) 34.4 ml/min 06/29/22 19:35 BUN/Creatinine Ratio 15.8 (10-20) 06/29/22 19:35 Glucose 297 mg/dl (70-99(Fasting)) H 06/29/22 19:35 Lactate 1.0 mmol/L (0.4-2.0) 06/29/22 22:18 Calcium 8.9 mg/dl (8.5-10.1) 06/29/22 19:35 Total Bilirubin 1.1 mg/dl (0.2-1.0) H 06/29/22 19:35 AST 13 U/L (13-39) 06/29/22 19:35 ALT 13 U/L (7-52) 06/29/22 19:35 Alkaline Phosphatase 96 U/L (34-104) 06/29/22 19:35 Total Protein 7.2 gm/dl (6.0-8.3) 06/29/22 19:35 Albumin 3.9 gm/dl (3.4-5.0) 06/29/22 19:35 Globulin 3.3 gm/dl (2.5-4.0) 06/29/22 19:35 Albumin/Globulin Ratio 1.2 (0.9-2) 06/29/22 19:35 Urine Color Yellow 06/29/22 21:07 Urine Appearance Turbid (Clear) A 06/29/22 21:07 Urine pH 5.5 (4.5-7.5) 06/29/22 21:07 Ur Specific [place] 1.021 (1.000-1.030) 06/29/22 21:07 Urine Protein 3+ (Negative) H 06/29/22 21:07 Urine Glucose (UA) 3+ (Negative) H 06/29/22 21:07 Urine Ketones Trace (Negative) H 06/29/22 21:07 Urine Blood 3+ (Negative) H 06/29/22 21:07 Urine Nitrite Negative (Negative) 06/29/22 21:07 Urine Bilirubin Negative (Negative) 06/29/22 21:07 Urine Urobilinogen Negative (Negative) 06/29/22 21:07 Ur Leukocyte Esterase 2+ (Negative) H 06/29/22 21:07 Urine WBC (Auto) >30 /hpf (0-5) H 06/29/22 21:07 Urine RBC (Auto) >30 /hpf (0-4) H 06/29/22 21:07 U Hyaline Cast (Auto) 1-5 /lpf (0-5) 06/29/22 21:07 U Epithel Cells (Auto) 20-30 /lpf (0-5) H 06/29/22 21:07 Urine Bacteria (Auto) 4+ (Negative) H 06/29/22 21:07 SARS-CoV-2, RNA, NAAT NEGATIVE (NEGATIVE) 06/29/22 22:[address] abdomen pelvis initial read: Nonobstructing stone seen in the lower pole of the left kidney, measuring up to 11 mmin diameter. There is omental fat-containing umbilical hernia measuring 2.8 cmin diameter. No hydronephrosis. Chest x-ray as per my interpretation atelectasis, elevated right hemidiaphragm
[2022-06-30] MEDS ORDERED: LANTUS PER UNIT CHARGE SQ STA (00:30)
[2022-06-30] MEDS ORDERED: LACTATED RINGER'S 1,000 ML IV ONE (00:32)
[2022-06-30] MEDS ORDERED: LORazepam 0.5 MG TAB PO PRN (00:42)
[2022-06-30] MEDS ORDERED: PROMETHAZINE HCL 12.5 MG in SODIUM CHLORIDE 0.9% 50 ML IV PRN (00:42)
[2022-06-30 01:38] LABS: Reticulocyte % 1.9 % (0.5-2.0); Reticulocytes # 0.07 10^6/uL (0.02-0.10)
[2022-06-30] MEDS ORDERED: CEFEPIME 2,000 MG/20 ML VIAL IV STA (01:50)
[2022-06-30] MEDS ORDERED: GLUCAGON FOR INJ 1 MG VIAL SQ PRN (02:17)
[2022-06-30] MEDS ORDERED: CARBOHYDRATES FOR HYPOGLYCEMIA PO PRN (02:17)
[2022-06-30] MEDS ORDERED: PANTOprazole 40 MG TAB PO PRN (02:17)
[2022-06-30] MEDS ORDERED: GLUCOSE 40% GEL 15 GM TUBE PO PRN (02:17)
[2022-06-30] MEDS ORDERED: GLUCOSE 10 TAB/TUBE PO PRN (02:17)
[2022-06-30] MEDS ORDERED: DEXTROSE 50% 50 ML SYRINGE IV PRN (02:17)
[2022-06-30] MEDS ORDERED: traZODone HCL 50 MG TAB PO PRN (02:17)
[2022-06-30] MEDS ORDERED: ACETAMINOPHEN 325 MG TAB PO PRN (02:17)
[2022-06-30] MEDS: HYDROmorphone INJ 0.5 MG/0.5 ML SYR IV PRN ×3 (02:58→13:29)
[2022-06-30] MEDS: INSULIN ASPART PER UNIT SC SCH ×5 (04:11→21:33)
[2022-06-30] MEDS: HEPARIN SOD 5,000 UNIT/0.5 ML VIAL SQ SCH ×3 (05:51→21:34)
[2022-06-30] MEDS: LEVOTHYROXINE SODIUM 200 MCG TABLET PO SCH (05:51)
[2022-06-30 06:22] LABS: Estimated Average Glucose 249 mg/dl; Hemoglobin A1C 10.3 % (4.5-5.6)
--- NOTE | 2022-06-30 07:43 | CT Scan Report ---
CT abd pelvis wo con CLINICAL HISTORY: left flank pain TECHNIQUE: Helical axial images of the abdomen and pelvis were obtained. Automated dose lowering tech niques and/or adjustment according to patient size were utilized for this exam. This exam was perfor med without intravenous contrast. CT DOSE: 963.06 mGycm COMPARISON: Comparison is made to CT abdomen pelvis 10/17/2018 FINDINGS: Lower chest: No acute abnormality Liver: The midclavicular line length is 15.3 cm. Previously noted hepatic steatosis is no longer seen . Gallbladder and biliary tree: No calcified gallstones. Normal caliber wall. No intra- or extrahepatic biliary ductal dilation. Pancreas: Unremarkable, no focal lesions. Spleen: Unremarkable. Adrenals: Unremarkable. Kidneys and ureters: Nonobstructive stones are seen in the left kidney. Bladder: Unremarkable. Reproductive organs: Prostatic calcifications are seen which may represent prior hemorrhage or granul omatous disease. Bowel: Diverticulosis is seen without evidence of diverticulitis. The appendix is normal. Lymph nodes Retroperitoneal: Unremarkable. Pelvic: Unremarkable. Mesenteric: Unremarkable. Peritoneum: Normal. Vessels: Atherosclerotic calcifications are seen. Abdominal wall: Right fat-containing inguinal hernia. Bones: Unremarkable. IMPRESSION: 1. Nonobstructive stones in the left kidney. No evidence of hydronephrosis or other acute abnormalit ies. 2. Previously noted hepatic steatosis is not seen. ACT 112: Negative or not required by law. Electronically signed by: Rodrikc Lewis M.D. 06/30/2022 7:42 AM
--- NOTE | 2022-06-30 08:05 | XRay Report ---
XR chest 1V portable HISTORY: 61 years-old Male renal failure acute renal failure COMPARISON: CT abdomen and pelvis of same day TECHNIQUE: AP view of the chest FINDINGS: Cardiomediastinal and hilar silhouettes are within normal limits. There is no pneumothorax, pleural e ffusion, airspace consolidation or overt pulmonary edema. Degenerative changes of the shoulders and s pine. IMPRESSION: No acute process. ACT 112: Negative or not required by law. The above report was generated using voice recognition software. It may contain grammatical, syntax o r spelling errors. Electronically signed by: Carlos Manuel Israel M.D. 06/30/2022 8:03 AM
[2022-06-30 08:12] LABS: Basophils # (auto) 0.05 K/uL (0-0.2); Basophils % (auto) 0.5 %; Eosinophils # (auto) 0.47 K/uL (0-0.50); Hematocrit (blood only) 32.5 % (40.1-51.0); Hemoglobin 11.5 g/dl (14.0-18.0); Immature Granulocytes # (auto) 0.03 K/uL (0.00-0.02); Immature Granulocytes % (auto) 0.3 %; Lymphocytes # (auto) 1.23 K/uL (1.2-3.4); Mean Corpuscular Hemoglobin 31.1 pg (25.0-34.0); Mean Corpuscular Hgb Conc 35.4 g/dL (32.0-36.0); Mean Corpuscular Volume 87.8 fL (80.0-100.0); Mean Platelet Volume 9.7 fL (9.4-12.4); Monocytes # (auto) 0.93 K/uL (0.24-0.82); Monocytes % (auto) 9.9 %; Neutrophils # (auto) 6.73 K/uL (1.4-6.5); Neutrophils % (auto) 71.3 %; Platelet Count 212 K/uL (130-400); RDW Coefficient of Variation 13.2 % (11.5-14.5); RDW Standard Deviation 42.8 fL (36.4-46.3); White Blood Count 9.44 K/ul (4.8-10.8)
[2022-06-30 08:33] LABS: BUN Creatinine Ratio 14.3 (10-20); Calcium 8.3 mg/dl (8.5-10.1); Creatinine Clr Calc Pharmacy 45.6 ml/min; Est GFR (African American) 41.5 ml/min; Est GFR (Non-African American) 35.8 ml/min; Potassium 3.9 mmol/L (3.5-5.1)
[2022-06-30] MEDS: amLODIPine BESYLATE 5 MG TAB PO SCH (08:38)
--- NOTE | 2022-06-30 10:15 | Hospitalist Progress Note ---
Date of Service June 30, 2022 Assessment & Plan (1) Sepsis: Plan: Secondary to complicated UTI, possible pyelonephritis SIRS criteria plus elevated procalcitonin History recurrent urolithiasis CT abd/P showed multiple left nephrolithiasis without signs of obstruction. Urine culture growing GNR Continue cefepime for now and follow-up speciation and sensitivities Acute kidney injury versus acute on chronic kidney disease. Monitor renal function. Reports that he has had normal creatinine for some time. We will try to get recent results from PCP as patient's last BMP was over the 2 years ago Hyponatremia Possibly chronic based on review of BMPs in the past. Monitor. Hypertension hx nonocclusive CAD Home losartan on hold in view of renal function. Continue amlodipine for now. DM2 On oral medications at home Suboptimal control as of outpatient hemoglobin A1c of 10.2 last 2018 Still poorly controlled as A1c is 10.3 this time. Patient will likely need at least long-acting insulin on discharge. visual educator consult Hypothyroidism Get TSH Chronic anemia Reports low Hb on outpatient labs Will try to get information from PCP AL[facility]AS status post surgery Past tobacco abuse DVT prophylaxis with Heparin subcu Full code Admission and Anticipated Discharge Date Admission Date: June 30, 2022 Subjective Patient seen and examined. Reports left flank pain occasionally radiates into the left lower abdomen. Reports pain is much improved now after getting some pain medicine from minutes prior to my evaluation. Blood nausea is controlled. No vomiting. Had reported some dysuria and feeling dehydrated at home prior to presentation. None at this time. No frequency or hematuria Denied any chest pain, cough, shortness of breath Denied any headache, dizziness Physical Exam Constitutional: + obese; no acute distress Eyes: PERRL, conjunctivae normal, anicteric sclerae ENMT: external ear and nose normal, oropharynx normal Respiratory: normal respiratory effort, lungs clear to auscultation Cardiovascular: Rate/Rhythm: regular rate and regular rhythm S1-S2 Gastrointestinal (Abdomen): normal bowel sounds, soft, nontender, no hepatosplenomegaly Musculoskeletal: No pedal edema Neurologic: PERRL, EOMI, accommodation nl, no face palsy, no dysarthria Psychiatric: A+Ox3, euthymic affect Genitourinary: + Left CVA tenderness Results & Data Results & Data ([facility]) Vital Signs (Past 12 Hours) Vital Signs Temp Pulse Pulse Resp BP BP Pulse Ox 06/30/22 07:12 36.8 C 88 16 133/75 97 06/30/22 07:01 77 06/30/22 02:30 88 06/30/22 02:40 37 C 89 16 120/79 97 06/30/22 02:02 06/29/22 23:02 98 H 20 157/93 H 97 O2 Del Method 06/30/22 07:12 Room Air 06/30/22 07:01 06/30/22 02:30 06/30/22 02:40 Room Air 06/30/22 02:02 Room Air 06/29/22 23:02 Room Air Laboratory Results Abnormal lab results 06/29/22 06/29/22 06/29/22 Range/Units 19:35 19:35 19:35 WBC 12.56 H (4.8-10.8) K/ul RBC 3.65 L (4.63-6.08) M/uL Hgb 11.3 L (14.0-18.0) g/dl Hct 31.5 L (40.1-51.0) % Neut # (Auto) 10.23 H (1.4-6.5) K/uL [place] # (Auto) 0.95 H (0.24-0.82) K/uL Immature Gran # (Auto) 0.05 H (0.00-0.02) K/uL Sodium 128 L (136-145) mmol/L Chloride 97 L (98-107) mmol/L Carbon Dioxide 20 L (21-32) mmol/L BUN 32 H (6-23) mg/dl Creatinine 2.03 H (0.6-1.4) mg/dl Glucose 297 H (70-99(Fasting)) mg/dl POC Glucose (70-99) mg/dl Hemoglobin A1c (4.5-5.6) % Calcium (8.5-10.1) mg/dl Iron (35-175) mcg/dl Ferritin (8-388) ng/ml Total Bilirubin 1.1 H (0.2-1.0) mg/dl Procalcitonin 0.66 H (0-0.5) ng/ml Urine Appearance (Clear) Urine Protein (Negative) Urine Glucose (UA) (Negative) Urine Ketones (Negative) Urine Blood (Negative) Ur Leukocyte Esterase (Negative) Urine WBC (Auto) (0-5) /hpf Urine RBC (Auto) (0-4) /hpf U Epithel Cells (Auto) (0-5) /lpf Urine Bacteria (Auto) (Negative) 06/29/22 06/29/22 06/30/22 Range/Units 19:35 21:07 01:15 WBC (4.8-10.8) K/ul RBC (4.63-6.08) M/uL Hgb (14.0-18.0) g/dl Hct (40.1-51.0) % Neut # (Auto) (1.4-6.5) K/uL [place] # (Auto) (0.24-0.82) K/uL Immature Gran # (Auto) (0.00-0.02) K/uL Sodium (136-145) mmol/L Chloride (98-107) mmol/L Carbon Dioxide (21-32) mmol/L BUN (6-23) mg/dl Creatinine (0.6-1.4) mg/dl Glucose (70-99(Fasting)) mg/dl POC Glucose 237 H (70-99) mg/dl Hemoglobin A1c 10.3 H (4.5-5.6) % Calcium (8.5-10.1) mg/dl Iron (35-175) mcg/dl Ferritin (8-388) ng/ml Total Bilirubin (0.2-1.0) mg/dl Procalcitonin (0-0.5) ng/ml Urine Appearance Turbid A (Clear) Urine Protein 3+ H (Negative) Urine Glucose (UA) 3+ H (Negative) Urine Ketones Trace H (Negative) Urine Blood 3+ H (Negative) Ur Leukocyte Esterase 2+ H (Negative) Urine WBC (Auto) >30 H (0-5) /hpf Urine RBC (Auto) >30 H (0-4) /hpf U Epithel Cells (Auto) 20-30 H (0-5) /lpf Urine Bacteria (Auto) 4+ H (Negative) 06/30/22 06/30/22 06/30/22 Range/Units 01:26 02:33 07:31 WBC (4.8-10.8) K/ul RBC (4.63-6.08) M/uL Hgb (14.0-18.0) g/dl Hct (40.1-51.0) % Neut # (Auto) (1.4-6.5) K/uL [place] # (Auto) (0.24-0.82) K/uL Immature Gran # (Auto) (0.00-0.02) K/uL Sodium 132 L (136-145) mmol/L Chloride (98-107) mmol/L Carbon Dioxide (21-32) mmol/L BUN (6-23) mg/dl Creatinine (0.6-1.4) mg/dl Glucose (70-99(Fasting)) mg/dl POC Glucose 230 H 187 H (70-99) mg/dl Hemoglobin A1c (4.5-5.6) % Calcium (8.5-10.1) mg/dl Iron 19 L (35-175) mcg/dl Ferritin 399.0 H (8-388) ng/ml Total Bilirubin (0.2-1.0) mg/dl Procalcitonin (0-0.5) ng/ml Urine Appearance (Clear) Urine Protein (Negative) Urine Glucose (UA) (Negative) Urine Ketones (Negative) Urine Blood (Negative) Ur Leukocyte Esterase (Negative) Urine WBC (Auto) (0-5) /hpf Urine RBC (Auto) (0-4) /hpf U Epithel Cells (Auto) (0-5) /lpf Urine Bacteria (Auto) (Negative) 06/30/22 06/30/22 Range/Units 08:00 08:00 WBC (4.8-10.8) K/ul RBC 3.70 L (4.63-6.08) M/uL Hgb 11.5 L (14.0-18.0) g/dl Hct 32.5 L (40.1-51.0) % Neut # (Auto) 6.73 H (1.4-6.5) K/uL [place] # (Auto) 0.93 H (0.24-0.82) K/uL Immature Gran # (Auto) 0.03 H (0.00-0.02) K/uL Sodium 132 L (136-145) mmol/L Chloride (98-107) mmol/L Carbon Dioxide (21-32) mmol/L BUN 28 H (6-23) mg/dl Creatinine 1.96 H (0.6-1.4) mg/dl Glucose 200 H (70-99(Fasting)) mg/dl POC Glucose (70-99) mg/dl Hemoglobin A1c (4.5-5.6) % Calcium 8.3 L (8.5-10.1) mg/dl Iron (35-175) mcg/dl Ferritin (8-388) ng/ml Total Bilirubin (0.2-1.0) mg/dl Procalcitonin (0-0.5) ng/ml Urine Appearance (Clear) Urine Protein (Negative) Urine Glucose (UA) (Negative) Urine Ketones (Negative) Urine Blood (Negative) Ur Leukocyte Esterase (Negative) Urine WBC (Auto) (0-5) /hpf Urine RBC (Auto) (0-4) /hpf U Epithel Cells (Auto) (0-5) /lpf Urine Bacteria (Auto) (Negative)
[2022-06-30] MEDS: LACTATED RINGER'S 1,000 ML IV SCH ×2 (10:29→21:33)
[2022-06-30 12:49] LABS: Thyroid Stimulating Hormone 5.508 uIu/ml (0.300-4.500)
[2022-06-30 15:13] LABS: T4 Free Thyroxine 1.3 ng/dl (0.61-1.60)
[2022-06-30] MEDS: oxyCODONE HCL IR 5 MG TAB (IMMEDIATE RELEASE) PO PRN (19:41)
[2022-06-30] MEDS ORDERED: LANTUS PER UNIT CHARGE SQ SCH (21:00)
[2022-07-01] MEDS: HEPARIN SOD 5,000 UNIT/0.5 ML VIAL SQ SCH ×3 (05:42→20:56)
[2022-07-01] MEDS: LEVOTHYROXINE SODIUM 200 MCG TABLET PO SCH (05:42)
[2022-07-01] MEDS ORDERED: CEFEPIME 2,000 MG in SYRINGE 0 ML IV SCH (06:00)
[2022-07-01] MEDS ORDERED: CEFEPIME 2,000 MG in SYRINGE 7.5 ML IV SCH (06:00)
[2022-07-01 06:46] LABS: Hemoglobin 10.6 g/dl (14.0-18.0); Mean Corpuscular Hemoglobin 30.6 pg (25.0-34.0); Mean Corpuscular Hgb Conc 34.2 g/dL (32.0-36.0); Mean Corpuscular Volume 89.6 fL (80.0-100.0); Platelet Count 236 K/uL (130-400); RDW Coefficient of Variation 13.2 % (11.5-14.5); RDW Standard Deviation 43.3 fL (36.4-46.3); Red Blood Count 3.46 M/uL (4.63-6.08); White Blood Count 5.17 K/ul (4.8-10.8)
[2022-07-01] MEDS: amLODIPine BESYLATE 5 MG TAB PO SCH (07:24)
[2022-07-01] MEDS: LACTATED RINGER'S 1,000 ML IV SCH (07:25)
[2022-07-01] MEDS: HYDROmorphone INJ 0.5 MG/0.5 ML SYR IV PRN (07:31)
[2022-07-01 07:41] LABS: Calcium 8.1 mg/dl (8.5-10.1); Creatinine Clr Calc Pharmacy 46.3 ml/min; Est GFR (African American) 42.6 ml/min; Est GFR (Non-African American) 36.8 ml/min; Potassium 4.1 mmol/L (3.5-5.1)
--- NOTE | 2022-07-01 09:08 | Hospitalist Progress Note ---
Date of Service July 01, 2022 Assessment & Plan (1) Sepsis: Plan: Secondary to complicated UTI, possible pyelonephritis SIRS criteria plus elevated procalcitonin History recurrent urolithiasis CT abd/P showed multiple left nephrolithiasis without signs of obstruction. Urine culture growing Enterobacter Antibiotics changed to levofloxacin. Will do IV for now and change to po on discharge Patient will follow up with Urology outpatient Acute kidney injury versus acute on chronic kidney disease. Monitor renal function. Patient reported he has had abnormal creatinine for some time. Still working on getting records. Our nurse coordinator aiding facilitate this Hyponatremia Chronic based on review of BMPs in the past. Monitor. Hypertension hx nonocclusive CAD Home losartan on hold in view of renal function. Continue amlodipine for now. DM2 On oral medications at home Suboptimal control as of outpatient hemoglobin A1c of 10.2 last 2018 Still poorly controlled as A1c is 10.3 this time. Patient will likely need at least long-acting insulin on discharge. Pharm glycemic c/s I also called PCP's office this AM to discuss patient with her and was told she will give me a call back Hypothyroidism Get TSH Chronic anemia Reports low Hb on outpatient labs Awaiting records ALMAS status post surgery Past tobacco abuse DVT prophylaxis with Heparin subcu Full code Admission and Anticipated Discharge Date Admission Date: June 30, 2022 Subjective Patient seen and examined. Reports left flank pain is improving No vomiting. Had reported some dysuria and feeling dehydrated at home prior to presentation. None at this time. No frequency or hematuria Denied any chest pain, cough, shortness of breath Denied any headache, dizziness Physical Exam Constitutional: + obese; no acute distress Eyes: PERRL, conjunctivae normal, anicteric sclerae ENMT: external ear and nose normal, oropharynx normal Respiratory: normal respiratory effort, lungs clear to auscultation Cardiovascular: Rate/Rhythm: regular rate and regular rhythm S1 S2 Gastrointestinal (Abdomen): normal bowel sounds, soft, nontender, no hepatosplenomegaly Musculoskeletal: no cyanosis or clubbing, extremities motor strength 5/5 Neurologic: PERRL, EOMI, accommodation nl, no face palsy, no dysarthria Psychiatric: A+Ox3, euthymic affect Genitourinary: +left CVA tenderness Results & Data Results & Data ([facility]) Vital Signs (Past 12 Hours) Vital Signs Temp Pulse Pulse Resp BP Pulse Ox O2 Del Method 07/01/22 07:39 37.1 C 83 20 126/72 96 Room Air 07/01/22 03:55 36.9 C 83 18 125/73 98 Room Air 06/30/22 23:29 36.7 C 86 18 126/76 99 Room Air 06/30/22 22:14 83 Laboratory Results Abnormal lab results 06/30/22 06/30/22 06/30/22 Range/Units 16:26 19:53 21:40 RBC (4.63-6.08) M/uL Hgb (14.0-18.0) g/dl Hct (40.1-51.0) % Sodium (136-145) mmol/L BUN (6-23) mg/dl Creatinine (0.6-1.4) mg/dl Glucose (70-99(Fasting)) mg/dl POC Glucose 199 H 213 H (70-99) mg/dl Calcium (8.5-10.1) mg/dl Urine Osmolality 204 L (500-800) mOsm/kg 07/01/22 07/01/22 07/01/22 Range/Units 06:09 06:09 07:30 RBC 3.46 L (4.63-6.08) M/uL Hgb 10.6 L (14.0-18.0) g/dl Hct 31.0 L (40.1-51.0) % Sodium 134 L (136-145) mmol/L BUN 25 H (6-23) mg/dl Creatinine 1.92 H (0.6-1.4) mg/dl Glucose 181 H (70-99(Fasting)) mg/dl POC Glucose 181 H (70-99) mg/dl Calcium 8.1 L (8.5-10.1) mg/dl Urine Osmolality (500-800) mOsm/kg 07/01/22 Range/Units 11:28 RBC (4.63-6.08) M/uL Hgb (14.0-18.0) g/dl Hct (40.1-51.0) % Sodium (136-145) mmol/L BUN (6-23) mg/dl Creatinine (0.6-1.4) mg/dl Glucose (70-99(Fasting)) mg/dl POC Glucose 225 H (70-99) mg/dl Calcium (8.5-10.1) mg/dl Urine Osmolality (500-800) mOsm/kg
[2022-07-01] MEDS: INSULIN ASPART PER UNIT SC SCH ×4 (09:36→20:51)
--- NOTE | 2022-07-01 10:01 | Urology Consultation ---
Date of Consultation July 01, 2022 Assessment & Plan (1) Nephrolithiasis: (2) PERLA (acute kidney injury): 61 year old male with longstanding history of recurrent calcium nephrolithiasis admitted for acute kidney injury and suspected pyelonephritis. - Pt afebrile, nontoxic, VSS. - Lab work reviewed - creatinine improving - 1.92 today, WBC 5.17. - Urine culture growing Enterobacter cloacae. He is on IV Cefepime. Follow culture and narrow per sensitivity data. - CT A/P reviewed - large nonobstructing left renal stones, no hydronephrosis; distended bladder and prostatic calcifications noted. - No acute intervention at this time. - Recommend treat acute infection. Monitor bladder emptying prn. - Recommend continue antibiotics per sensitivities, supportive care, and management per medicine. - He has an extensive history of stones and lithotripsy in the past. - Will arrange an outpatient follow-up with our service for management of his renal stones. - will sign off. History of Present Illness Reason for Consultation: Recurrent kidney stones. complicated UTI Requesting Physician: Dr. Bishop Attending Physician: Rossi Bishop MD History of Present Illness This is a 61 year old male with past medical history of dyslipidemia, GERD, HTN, hypothyroidism, type 2 diabetes, and longstanding history of recurrent calcium nephrolithiasis who was admitted for acute kidney injury and suspected pyelonephritis. He presented to [facility] ED on 06/29/22 with complaint of left flank pain. He has a longstanding history of nephrolithiasis and pain felt similar to prior kidney stones. On arrival he was afebrile and hemodynamically stable. Lab work independently reviewed and chemistry was notable for a creatinine of 2.03 and Sodium of 128. His CBC showed mild leukocytosis of 12.56. Lactate was 1.0. Urinalysis showed 3+ blood, 2+ leukocyte esterase, and microscopy showed >30 WBCs, >30 RBCs, 20-30 epithelials, and 4+ bacteria. Urine culture collected. A CT A/P wo contrast was performed and notable for nonobstructive stones in the left kidney, no evidence of hydronephrosis. Prostate calcifications are noted, and bladder appears distended. He was treated with IV fluids, Tylenol, Hydromorphone, Morphine, Ondansetron, and Ceftriaxone in the ED. He was [facility]. Urology consulted for recurrent kidney stones and complicated UTI. Patient seen and examined at bedside. Subjectively improving since arrival. He reports that left flank pain has improved. He is voiding spontaneously without difficulty. Dysuria improved. No hematuria. He reports some feeling of incomplete emptying prior to arrival. This has improved. No nausea or vomiting. No fever or chills. Chart review - Afebrile, VSS, lab work reviewed - creatinine 1.92, WBC 5.17. Urine culture growing Enterobacter cloacae. He is on IV Cefepime. He followed with Dr. Santana in the past. 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 Reports history of up to 20 lithotripsies in the past. Last one about 20 years ago. He has passed small stones in the interim. Family hx of stones - Father. Father also had hx of prostate cancer. Allergies Allergy/AdvReac Type Severity Reaction Status Date / Time ketorolac [From Toradol] Allergy Intermediate ITCHY Verified 06/29/22 21:32 lisinopril AdvReac Intermediate cough Verified 06/29/22 21:27 naproxen AdvReac Intermediate Nausea/Vomi Verified 06/29/22 21:27 ting NSAIDS (Non-Steroidal AdvReac Intermediate Vomiting Verified 06/29/22 21:27 Anti-Inflamma Home Medications Medication Instructions Recorded Confirmed Type glipizide 10 mg tablet, extended 10 mg PO BID 07/28/18 06/29/22 History release 24 hr (Glucotrol XL) omeprazole 20 mg capsule,delayed 20 mg PO QAM PRN Acid Reflux 07/28/18 06/29/22 History release levothyroxine 200 mcg tablet 200 mcg PO DAILY 06/29/22 06/29/22 History losartan 100 mg tablet 100 mg PO HS 06/29/22 06/29/22 History trazodone 50 mg tablet 50 mg PO HS PRN Sleep 06/29/22 06/29/22 History Patient History Medical History (Updated 07/01/22 @ 10:16 by ERUM Delgado) Diabetes DM type 2 (diabetes mellitus, type 2) Dyslipidemia GERD (gastroesophageal reflux disease) HTN (hypertension) Hypothyroidism Kidney stones Surgical History H/O inguinal hernia repair H/O lithotripsy History of lithotripsy Family History Mother Diabetes Social History Smoking Status: Former smoker Second Hand Exposure: No; Hx Alcohol Use: Yes Alcohol type: beer Hx Substance Use: No Preferred Language: Bengali Communication Ability: Effective 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 Beliefs That Will Affect Care: None marital status: Current Living Situation: Alone current occupational status: employed Feels Safe at Home: Yes Assistive Devices: None Review of Systems Review of Systems: All systems reviewed & are unremarkable except as noted in HPI & below Physical Exam Constitutional: well developed, well nourished and + obese; no acute distress and not ill appearing Eyes: no scleral abnormality Neck: normal visual inspection Respiratory: normal respiratory effort and able to speak in complete sentences; no respiratory distress and no labored breathing Cardiovascular: Extremities: no pedal edema Gastrointestinal (Abdomen): Inspection/Auscultation: abdomen normal to inspection; abdomen not distended Musculoskeletal: Head/Neck/Chest: normocephalic and head atraumatic Skin: no visible skin rashes Neurologic: moves all extremities and awake Psychiatric: Orientation: alert and oriented x 3 Results & Data ([facility]) Vital Signs (Past 12 Hours) Vital Signs Temp Pulse Pulse Resp BP Pulse Ox O2 Del Method 07/01/22 07:39 37.1 C 83 20 126/72 96 Room Air 07/01/22 03:55 36.9 C 83 18 125/73 98 Room Air 06/30/22 23:29 36.7 C 86 18 126/76 99 Room Air 06/30/22 22:14 83 PG Care Time/CCT Total # of Minutes Spent Total Time Spent with Patient: Total time spent is greater than 50% in coordination of care (as documented) at patient's floor/unit and/or counseling patient: Coding Level of Care Code 69958 Inpt Consult Level 3 Diagnoses Nephrolithiasis N20.0 PERLA (acute kidney injury) N17.9
[2022-07-01] MEDS ORDERED: PHARMACY GLYCEMIC MGMT CONSULT PRN (13:05)
--- NOTE | 2022-07-01 13:36 | Communication Note ---
Date of Service: July 01, 2022 Review of some outpatient records from PCP: Creatinine was -2.48 on 06/18/22 -2.12 on 03/10/22 -2.12 on 12/30/21 -2.02 on 10/10/21 -1.41 on 07/03/21 Hemoglobin A1c -10.4 on 06/18/22 -10.7 on 03/10/22 -10.5 on 12/30/21 -8.9 on 10/10/21 -7.7 on 07/03/21 Hemoglobin -12.7 on 06/18/22 -12.7 on 03/10/22 -14.3 on 12/30/21 -14.7 on 07/03/21 Based on these lab records, patient has CKD 3, poorly controlled diabetes mellitus and has been developing chronic anemia I also spoke with patient's PCP who reported patient has been poorly adherent to medications. She is agreeable to starting lantus on discharge, outpatient nephrology and urology follow up. She will continue to follow patient and adjust insulin as needed.
--- NOTE | 2022-07-01 14:14 | Pharmacy Report ---
Pharmacy Glycemic Short Note 2 - Date of Service July 01, 2022 - Glycemic Short BSG Results (Last 24 hours): 06/30/22 06/30/22 07/01/22 16:26 19:53 06:09 Glucose 181 H POC Glucose 199 H 213 H 07/01/22 07/01/22 07:30 11:28 Glucose POC Glucose 181 H 225 H OUTPATIENT ANTIDIABETIC REGIMEN: * A1c = 10.3 % * Glipizide 10 mg PO BID ASSESSMENT: * Lance is a 61 yo T2DM admitted for complicated UTI, possible pyelonephritis * He was started on Lantus 10 units qHS + novolog yesterday. BSGs remain above goal (181 and 225 mg/dL so far today). * Will increase Lantus to 16 units daily. * Start with dinner today and then may resume HS dosing on 07/02. Once daily dosing preferred for transition to home. * Suspect patient needs more aggressive carb coverage. Will tighten carb ratio to 8 (based on weight/stress 2) PLAN FOR INPATIENT GLYCEMIC CONTROL: * Hold outpatient oral diabetes medications * Basal insulin * Lantus 16 units SQ once daily * Bolus insulin * NovoLog per scale ACHS or Q6hrs while NPO * Goal Range: Low 110 mg/dL - High 140 mg/dL * Correction Factor: 20 mg/dL/unit * Nutritional / Prandial insulin per carb ratio of 1 unit per 8 grams CHO consumed
[2022-07-01] MEDS: oxyCODONE HCL IR 5 MG TAB (IMMEDIATE RELEASE) PO PRN ×2 (14:52→20:53)
[2022-07-01] MEDS ORDERED: LANTUS PER UNIT CHARGE SQ SCH (16:30)
[2022-07-01] MEDS ORDERED: levoFLOXacin/D5W 750 MG/150 ML BAG IV SCH (18:00)
[2022-07-02 06:40] LABS: Hematocrit (blood only) 32.5 % (40.1-51.0); Hemoglobin 11.4 g/dl (14.0-18.0); Mean Corpuscular Hemoglobin 30.9 pg (25.0-34.0); Mean Corpuscular Hgb Conc 35.1 g/dL (32.0-36.0); Mean Corpuscular Volume 88.1 fL (80.0-100.0); Platelet Count 272 K/uL (130-400); RDW Standard Deviation 41.9 fL (36.4-46.3); Red Blood Count 3.69 M/uL (4.63-6.08); White Blood Count 5.14 K/ul (4.8-10.8)
[2022-07-02 07:05] LABS: BUN Creatinine Ratio 11.6 (10-20); Calcium 8.8 mg/dl (8.5-10.1); Creatinine Clr Calc Pharmacy 39.7 ml/min; Est GFR (African American) 35.4 ml/min; Est GFR (Non-African American) 30.5 ml/min; Potassium 4.5 mmol/L (3.5-5.1)
[2022-07-02] MEDS: HEPARIN SOD 5,000 UNIT/0.5 ML VIAL SQ SCH ×2 (07:21→07:23)
[2022-07-02] MEDS: LEVOTHYROXINE SODIUM 200 MCG TABLET PO SCH (07:21)
[2022-07-02] MEDS: INSULIN ASPART PER UNIT SC SCH ×2 (08:28→12:14)
[2022-07-02] MEDS: amLODIPine BESYLATE 5 MG TAB PO SCH (08:31)
[2022-07-02] MEDS ORDERED: LANTUS PER UNIT CHARGE SQ SCH (09:00)
--- NOTE | 2022-07-02 10:31 | Pharmacy Report ---
Pharmacy Glycemic Short Note 2 - Date of Service July 02, 2022 - Glycemic Short BSG Results (Last 24 hours): 07/01/22 07/01/22 07/01/22 11:28 16:18 20:29 Glucose POC Glucose 225 H 136 H 229 H 07/02/22 07/02/22 05:41 07:43 Glucose 176 H POC Glucose 186 H OUTPATIENT ANTIDIABETIC REGIMEN: * A1c = 10.3 % * Glipizide 10 mg PO BID ASSESSMENT: 07/02/22 * Lance received 40 units of SQ insulin yesterday with fluctuating BSG control: * 16 units Lantus + 24 units Novolog * BSGs: 181, 225, 136, 229 mg/dL * Fasting BSG of 186 mg/dL is above goal. Will continue to titrate Lantus dose (increase 25% today) * Post prandial BSGs are mostly elevated. Novolog CF and CR were significantly tightened yesterday evening. Will continue current parameters this morning. May tighten carb coverage if lunch BSG is elevated. Background: * Lance is a 61 yo T2DM admitted for complicated UTI, possible pyelonephritis * He was started on Lantus 10 units qHS + novolog yesterday. BSGs remain above goal (181 and 225 mg/dL so far today). * Will increase Lantus to 16 units daily. * Start with dinner today and then may resume HS dosing on 07/02. Once daily dosing preferred for transition to home. * Suspect patient needs more aggressive carb coverage. Will tighten carb ratio to 8 (based on weight/stress 2) PLAN FOR INPATIENT GLYCEMIC CONTROL: * Hold outpatient oral diabetes medications * Basal insulin * Continue Lantus 16 units SQ once daily + additional 4 units SQ this morning * 07/03: Start Lantus 20 units SQ once daily * Bolus insulin * NovoLog per scale ACHS or Q6hrs while NPO * Goal Range: Low 110 mg/dL - High 140 mg/dL * Correction Factor: 20 mg/dL/unit * Nutritional / Prandial insulin per carb ratio of 1 unit per 8 grams CHO consumed
--- NOTE | 2022-07-02 12:10 | Discharge Summary ---
Discharge Summary Date of Service July 02, 2022 Notes For Next Care Provider Needs follow up with Nephrology for his CKD3 Needs follow up with Urology for his kidney stones Continue management of diabetes and other medical problems Medication Changes From Visit Started on lantus 10U HS Discharged on levofloxacin 750mg q48h to complete 10 days of treatment Admission HPI Per Admitting Provider History obtained from patient and records. Medical history significant for nonocclusive CAD, hypertension, hyperlipidemia, DM2 on oral medications, hypothyroidism, recurrent urolithiasis, CRI (unknown baseline), anemia on recent outpatient blood work, chronic hyponatremia, ALMAS status post surgery, past tobacco abuse. Last confinement October 2018 for intractable nausea vomiting. Few days history of achy left flank pain nausea, dry heaving symptoms reminiscent of kidney stone pain. No gross hematuria. No fever; some chills. No chest pain, no SOB. Patient consulted ER for intractable pain. IV ceftriaxone administered at the ER. Medical History as above Surgical History : Multiple lithotripsies, hernia repair Family History : Heart disease, autism Personal/Social history : Past tobacco abuse, occasional EtOH intake, ophthalmology clinic nurse Admission Exam Per Admitting Provider GENERAL: Slightly uncomfortable, pleasant, obese, no respiratory distress SKIN: Normal color, warm HEENT: [place] palpebral conjunctivae, no ptosis, dry buccal mucosa NECK : Supple, short neck, no tenderness CHEST : CTA, no tenderness HEART : RRR, no obvious murmurs ABDOMEN: Some distention, nontender BACK : Left flank tenderness EXTREMITIES : Minimal LE swelling, no LE tenderness, no other conspicuous deformities noted NEUROLOGIC : Coherent, no facial asymmetry, no other gross focality Principal Dx & Hospital Course #1 = Principal Diagnosis (1) Sepsis: Secondary to complicated UTI, possible pyelonephritis SIRS criteria plus elevated procalcitonin History of recurrent urolithiasis CT abd/P showed multiple left nephrolithiasis without signs of obstruction. Urine culture grew Enterobacter Was initially on IV ceftriaxone, changed to levofloxacin to complete treatment for 10 days Was seen by Urology inpatient Patient will follow up with Urology outpatient Discharged with a few doses of oxycodone 5mg to be used prn for pain not controlled by Tylenol Chronic kidney disease stage 3. Counseled patient on need for proper management of diabetes and other medical problems as well as need for Nephrology follow up Referral made for Nephrology and obtained appointment for patient Hypertension hx nonocclusive CAD Continue home losartan DM2 Uncontrolled based on outpatient A1c Still poorly controlled as A1c is 10.3 this time. Provided diabetes education Continue glipizide Started lantus 10U HS. Patient to keep a home blood glucose log for PCP PCP will follow up and adjust dose or add short acting insulin as needed Hypothyroidism TSH 5.5. FT4 1.3 Continue levothyroxine Counseled patient extensively on need for medication adherence Discharge Exam Constitutional + obese; no acute distress Eyes PERRL, conjunctivae normal, anicteric sclerae ENMT external ear and nose normal, oropharynx normal Respiratory normal respiratory effort, lungs clear to auscultation Cardiovascular Rate/Rhythm: regular rate and regular rhythm S1 S2 Gastrointestinal (Abdomen) normal bowel sounds, soft, nontender, no hepatosplenomegaly Musculoskeletal no cyanosis or clubbing, extremities motor strength 5/5 Neurologic PERRL, EOMI, accommodation nl, no face palsy, no dysarthria Psychiatric A+Ox3, euthymic affect Updated Medication List Medication Instructions Recorded Confirmed Type glipizide 10 mg tablet, extended 10 mg PO BID 07/28/18 06/29/22 History release 24 hr (Glucotrol XL) omeprazole 20 mg capsule,delayed 20 mg PO QAM PRN Acid Reflux 07/28/18 06/29/22 History release levothyroxine 200 mcg tablet 200 mcg PO DAILY 06/29/22 06/29/22 History losartan 100 mg tablet 100 mg PO HS 06/29/22 06/29/22 History trazodone 50 mg tablet 50 mg PO HS PRN Sleep 06/29/22 06/29/22 History insulin glargine 100 unit/mL (3 10 unit (0.1 mL) subcut HS #15 mL 07/02/22 Rx mL) subcutaneous pen (Lantus Solostar U-100 Insulin) insulin syringe-needle U-100 0.3 #100 ea 07/02/22 Rx mL 31 x 3/8" levofloxacin 750 mg tablet 750 mg PO Q48H 7 days #4 tabs 07/02/22 Rx oxycodone 5 mg tablet 5 mg PO TID PRN Severe pain not 07/02/22 Rx controlled by tylenol #10 tabs Hospital Stay Data Consultations 06/30/22 00:02 ED Decision to Admit Stat 07/01/22 09:04 Consult Urology Routine Diagnostic Imagining Performed 06/29/22 22:00 CT stones [CT abd pelvis wo con] Urgent Lower chest: No acute abnormality Liver: The midclavicular line length is 15.3 cm. Previously noted hepatic steatosis is no longer seen. Gallbladder and biliary tree: No calcified gallstones. Normal caliber wall. No intra- or extrahepatic biliary ductal dilation. Pancreas: Unremarkable, no focal lesions. Spleen: Unremarkable. Adrenals: Unremarkable. Kidneys and ureters: Nonobstructive stones are seen in the left kidney. Bladder: Unremarkable. Reproductive organs: Prostatic calcifications are seen which may represent prior hemorrhage or granulomatous disease. Bowel: Diverticulosis is seen without evidence of diverticulitis. The appendix is normal. Lymph nodes Retroperitoneal: Unremarkable. Pelvic: Unremarkable. Mesenteric: Unremarkable. Peritoneum: Normal. Vessels: Atherosclerotic calcifications are seen. Abdominal wall: Right fat-containing inguinal hernia. Bones: Unremarkable. IMPRESSION: 1. Nonobstructive stones in the left kidney. No evidence of hydronephrosis or other acute abnormalities. 2. Previously noted hepatic steatosis is not seen. Pending Results Patient Have Any Pending Studies at Discharge: No Discharge Instructions Given to Patient (Per Discharging Provider) Mr Hampton. You came to the hospital complaining of flank pain and nausea. You were evaluated and managed for the above mentioned diagnoses. You are being discharged on Levofloxacin to complete treatment. You are also being started on insulin glargine 10Units at bedtime. Please keep a record of home blood glucose measurements as we discussed for your Primary Doctor who will continue to make adjustments. Please ensure follow up with Urology for continued management of your Kidney stones. Please ensure follow up with Nephrology for management of your Chronic Kidney Disease. It was a pleasure taking care of you. Total Time Total Time Spent Total Time Spent (In Minutes): 45 Total Time Includes: Examination of the Patient, Discharge Planning and Medication Reconciliation
[2022-07-03] MEDS ORDERED: LANTUS PER UNIT CHARGE SQ SCH (21:00)
== END 2022-07-02 14:25 | disposition home or self-care (01) | DRG 872 ==
LOC: ED 19:04 → 2W 06-30 00:39